=== PATIENT | female | born 1965 | race American Indian/Alaskan Native ===

== ENCOUNTER 2017-09-27 11:46 | Emergency (ER) | payer MEDICARE ==
[2017-09-27] MEDS ORDERED: ASPIRIN PO ONE (12:00)
[2017-09-27 12:32] LABS: Basophils % (Auto) 0.3 % (0.0-1.8); Eosinophils # (Auto) 0.1 K/mm3 (0.0-0.4); Eosinophils % (Auto) 1.7 % (0.0-4.3); Hematocrit 41.5 % (30.3-42.9); Hemoglobin 13.7 gm/dl (10.1-14.3); Lymphocytes # (Auto) 1.3 K/mm3 (1.2-5.4); Lymphocytes % (Auto) 32.7 % (13.4-35.0); Mean Corpuscular HGB Conc 33 % (30-34); Mean Corpuscular Hemoglobin 30 pg (28-32); Mean Corpuscular Volume 90 fl (79-97); Monocytes # (Auto) 0.2 K/mm3 (0.0-0.8); Monocytes % (Auto) 5.9 % (0.0-7.3); Platelet Count 246 K/mm3 (140-440); Red Blood Count 4.61 M/mm3 (3.65-5.03); Red Cell Distribution Width 15.1 % (13.2-15.2)
[2017-09-27 12:50] LABS: BUN/Creatinine Ratio 16; Blood Urea Nitrogen 11 mg/dL (7-17); Calcium 8.5 mg/dL (8.4-10.2); Hemolysis Index 8
--- NOTE | 2017-09-27 12:50 | XRay Report ---
Chest 2 views: X. History: Cough and chest pain. Findings: Normal cardiomediastinal silhouette. Trachea is midline. No consolidation, pneumothorax or pleural effusion. Impression: No acute cardiopulmonary findings.
--- NOTE | 2017-09-27 22:43 | Emergency Department Report ---
ED Chest Pain HPI - General Chief Complaint: Chest Pain Stated Complaint: CP/WEAKNESS/VOMIT Time Seen by Provider: 09/27/17 22:38 Source: patient Mode of arrival: Ambulatory Limitations: No Limitations - History of Present Illness Initial Comments: This is a 52-year-old female with a past medical history significant for previous GA with coronary artery stent placement and diabetes hypertension HIV hypercholesterolemia who comes to the hospital with a history of chest pain and cough worsening over the past day. She states that she has had a fever at home but did not check it, she did get her flu shot this season, she also admits to vomiting times one today. She states that when she tries to eat she feels like she is choking. She states that she has not been compliant with her HIV medications. She does however remark that her viral load was undetectable last year. She states that when she did have a heart attack, she felt like this in the past. Complaint: chest pain -: Gradual, days(s) (1) Onset: during rest Pain Location: substernal Pain Radiation: none Severity: moderate Quality: tightness, heaviness Consistency: intermittent Improves With: nothing Worsens With: nothing re: vomting Other Symptoms: cough, fever Treatments Prior to Arrival: none - Related Data Home Medications Medication Instructions Recorded Confirmed Last Taken Aspirin [Aspirin BABY CHEW TAB] 81 mg PO QDAY 09/04/13 04/03/14 04/02/14 Atenolol/Chlorthalidone [Tenoretic 1 tab PO QDAY 09/04/13 04/03/14 04/02/14 50-25 mg] Atorvastatin [Lipitor] 40 mg PO QHS 09/04/13 04/03/14 04/02/14 Clopidogrel Bisulfate [Plavix] 75 mg PO QDAY 09/04/13 04/03/14 04/02/14 metFORMIN [Glucophage] 500 mg PO BID 09/04/13 04/03/14 04/02/14 Previous Rx's Medication Instructions Recorded Last Taken Type Famotidine [Pepcid] 20 mg PO BID #10 tablet 04/03/14 Unknown Rx Naproxen [Naprosyn] 250 mg PO BID #10 tablet 04/03/14 Unknown Rx Naproxen [Naprosyn TAB] 500 mg PO BID #30 tablet 06/26/14 Unknown Rx ALBUTEROL Inhaler [ProAir HFA 2 puff IH QID PRN #1 inhalation 09/28/17 Unknown Rx Inhaler] Hycodan Syrup 5 ml PO BID PRN #150 ml 09/28/17 Unknown Rx Sulfamethoxazole/Trimethoprim 1 each PO BID 15 Days #30 tablet 09/28/17 Unknown Rx [Bactrim DS TAB] Allergies Allergy/AdvReac Type Severity Reaction Status Date / Time No Known Allergies Allergy Verified 06/26/14 12:33 Heart Score - HEART Score History: Slightly suspicious EKG: Non-specific Age: 45-65 Risk factors: > 3 risk factors or hx of atherosclerotic disease Troponin: < normal limit HEART Score: 4 ED Review of Systems ROS: Stated complaint: CP/WEAKNESS/VOMIT Other details as noted in HPI Comment: All other systems reviewed and negative Constitutional: see HPI, chills, fever, weakness Eyes: as per HPI ENT: as per HPI Respiratory: see HPI Cardiovascular: as per HPI Endocrine: see HPI Gastrointestinal: as per HPI Genitourinary: as per HPI Musculoskeletal: as per HPI Skin: as per HPI Neurological: as per HPI Psychiatric: as per HPI Hematological/Lymphatic: as per HPI ED Past Medical Hx - Past Medical History Hx Hypertension: Yes Hx Heart Attack/AMI: Yes (pt states had GA in march 2013 s/p stent placement by Dr Stephanie Pineda.) Hx Diabetes: Yes Hx HIV: Yes Additional medical history: high chol, HIV - Surgical History Hx Coronary Stent: Yes Additional Surgical History: hysterectomy. right knee surgery. left arm and wrist surgery - Social History Smoking Status: Current Every Day Smoker Substance Use Type: Alcohol - Medications Home Medications: Home Medications Medication Instructions Recorded Confirmed Last Taken Type Aspirin [Aspirin BABY CHEW TAB] 81 mg PO QDAY 09/04/13 04/03/14 04/02/14 History Atenolol/Chlorthalidone [Tenoretic 1 tab PO QDAY 09/04/13 04/03/14 04/02/14 History 50-25 mg] Atorvastatin [Lipitor] 40 mg PO QHS 09/04/13 04/03/14 04/02/14 History Clopidogrel Bisulfate [Plavix] 75 mg PO QDAY 09/04/13 04/03/14 04/02/14 History metFORMIN [Glucophage] 500 mg PO BID 09/04/13 04/03/14 04/02/14 History Famotidine [Pepcid] 20 mg PO BID #10 tablet 04/03/14 Unknown Rx Naproxen [Naprosyn] 250 mg PO BID #10 tablet 04/03/14 Unknown Rx Naproxen [Naprosyn TAB] 500 mg PO BID #30 tablet 06/26/14 Unknown Rx ALBUTEROL Inhaler [ProAir HFA 2 puff IH QID PRN #1 inhalation 09/28/17 Unknown Rx Inhaler] Hycodan Syrup 5 ml PO BID PRN #150 ml 09/28/17 Unknown Rx Sulfamethoxazole/Trimethoprim 1 each PO BID 15 Days #30 tablet 09/28/17 Unknown Rx [Bactrim DS TAB] ED Physical Exam - General Limitations: No Limitations General appearance: alert, in no apparent distress - Head Head exam: Present: atraumatic - Eye Eye exam: Present: normal appearance, PERRL, EOMI - ENT ENT exam: Present: normal exam - Neck Neck exam: Present: normal inspection - Respiratory Respiratory exam: Present: normal lung sounds bilaterally - Cardiovascular Cardiovascular Exam: Present: regular rate, normal rhythm - GI/Abdominal GI/Abdominal exam: Present: soft, normal bowel sounds - Extremities Exam Extremities exam: Present: normal inspection - Back Exam Back exam: Present: normal inspection - Neurological Exam Neurological exam: Present: alert, oriented X3, CN II-XII intact, normal gait - Psychiatric Psychiatric exam: Present: normal affect - Skin Skin exam: Present: warm, dry, intact ED Course Vital Signs 09/27/17 09/27/17 11:58 23:16 Temperature 98.4 F Pulse Rate 87 84 Respiratory 20 16 Rate Blood Pressure 157/75 Blood Pressure 144/77 [Left] O2 Sat by Pulse 98 100 Oximetry - Reevaluation(s) Reevaluation #1: 09/28/17 01:13 I reviewed the lab results with the patient. And her x-ray findings. 3 sets of cardiac enzymes are within normal limits. Her chest x-ray does not reveal any type of infiltrate or consolidation evident indicate pneumonia. Her flu swab was negative as well. At this time we'll go ahead and treat her for bronchitis. Because she is HIV-positive elect to go ahead and started on Bactrim DS 1 by mouth twice a day and will do that for at least 2 weeks. Also started on Hycodan cough syrup. I'll also give her an albuterol inhaler. She is to follow-up with her primary care doctor. I advised her to resume her HIV medications. 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 She expresses understanding. YONI score - Yoni Score Age > 65: (0) No Aspirin use within the Past 7 Days: (1) Yes 3 or more CAD Risk Factors: (1) Yes 2 or more Angina events in past 24 hrs: (0) No Known CAD with more than 50% Stenosis: (1) Yes Elevated Cardiac Markers: (0) No ST Deviation Greater than 0.5mm: (0) No YONI Score: 3 ED Medical Decision Making - Lab Data Result diagrams: 09/27/17 12:05 09/27/17 12:05 Critical care attestation.: If time is entered above; I have spent that time in minutes in the direct care of this critically ill patient, excluding procedure time. ED Disposition Clinical Impression: Acute bronchitis Qualifiers: Bronchitis organism: unspecified organism Qualified Code(s): J20.9 - Acute bronchitis, unspecified Disposition: DC-01 TO HOME OR SELFCARE Is pt being admited?: No Does the pt Need Aspirin: No Condition: Stable Instructions: Acute Bronchitis (ED) Additional Instructions: Rest, fluids, follow up to primary care doctor. Return as needed. Call 911 if you think you having a life-threatening emergency. Prescriptions: ALBUTEROL Inhaler [ProAir HFA Inhaler] 2 puff IH QID PRN #1 inhalation PRN Reason: Shortness Of Breath Hycodan Syrup 5 ml PO BID PRN #150 ml PRN Reason: Cough Sulfamethoxazole/Trimethoprim [Bactrim DS TAB] 1 each PO BID 15 Days #30 tablet Referrals: VIGNESH SORTO MD [Primary Care Provider] - 3-5 Days
[2017-09-27 23:19] VITALS: BP 144/77
== END 2017-09-28 01:45 | disposition home or self-care (01) ==
LOC: ED 11:46
DX: J20.9 Acute bronchitis, unspecified (principal); I10 Essential (primary) hypertension; I25.2 Old myocardial infarction; E11.9 Type 2 diabetes mellitus without complications; Z21 Asymptomatic human immunodeficiency virus [HIV] infection status; F17.200 Nicotine dependence, unspecified, uncomplicated; Z79.82 Long term (current) use of aspirin; E78.00 Pure hypercholesterolemia, unspecified
CPT/HCPCS: 36415; 71046; 80048; 84484; 85025; 87400; 93005; 93010

== ENCOUNTER 2018-10-17 11:33 | Emergency (ER) | payer MEDICARE ==
[2018-10-17 11:37] VITALS: BP 166/68
[2018-10-17] MEDS ORDERED: ULTRAM PO ONE (12:01)
[2018-10-17] MEDS ORDERED: TORADOL IM ONE (12:01)
--- NOTE | 2018-10-17 12:22 | Emergency Department Report ---
ED Abdominal Pain HPI - General Chief Complaint: Abdominal Pain Stated Complaint: ABD AND LEG PAIN Time Seen by Provider: 10/17/18 11:52 Source: patient Mode of arrival: Ambulatory Limitations: No Limitations - History of Present Illness Initial Comments: 53-year-old female with a past medical history of diabetes, CAD, HIV with CD4 greater than 200, hypertension, previous hysterectomy and presents to [facility] complaints of lower abdominal pain 2-3 days. Pain is along her previous scar and she feels a knot. Pain is intermittent, worse with palpation and initially felt like gas. No alleviating factors reported. Patient complains of a frothy/sudsy urine without dysuria or frequency. She also denies nausea, vomiting, diarrhea, or vaginal discharge. She does not express concerns for STD and has been essentially active one time in the last several months. Severity scale (0 -10): 8 - Related Data Home Medications Medication Instructions Recorded Confirmed Last Taken Aspirin [Aspirin BABY CHEW TAB] 81 mg PO QDAY 09/04/13 04/03/14 04/02/14 Atenolol/Chlorthalidone [Tenoretic 1 tab PO QDAY 09/04/13 04/03/14 04/02/14 50-25 mg] Atorvastatin [Lipitor] 40 mg PO QHS 09/04/13 04/03/14 04/02/14 Clopidogrel Bisulfate [Plavix] 75 mg PO QDAY 09/04/13 04/03/14 04/02/14 metFORMIN [Glucophage] 500 mg PO BID 09/04/13 04/03/14 04/02/14 Previous Rx's Medication Instructions Recorded Last Taken Type Famotidine [Pepcid] 20 mg PO BID #10 tablet 04/03/14 Unknown Rx Naproxen [Naprosyn] 250 mg PO BID #10 tablet 04/03/14 Unknown Rx Naproxen [Naprosyn TAB] 500 mg PO BID #30 tablet 06/26/14 Unknown Rx ALBUTEROL Inhaler (OR & NICU) 2 puff IH QID PRN #1 inhalation 09/28/17 Unknown Rx [ProAir HFA Inhaler] Hycodan Syrup 5 ml PO BID PRN #150 ml 09/28/17 Unknown Rx Sulfamethoxazole/Trimethoprim 1 each PO BID 15 Days #30 tablet 09/28/17 Unknown Rx [Bactrim DS TAB] Ibuprofen [Motrin] 800 mg PO Q8HR PRN #30 tablet 10/17/18 Unknown Rx traMADol [Ultram 50 MG tab] 50 mg PO Q6HR PRN #20 tablet 10/17/18 Unknown Rx Allergies Allergy/AdvReac Type Severity Reaction Status Date / Time No Known Allergies Allergy Verified 10/17/18 11:34 ED Review of Systems ROS: Stated complaint: ABD AND LEG PAIN Other details as noted in HPI Comment: All other systems reviewed and negative ED Past Medical Hx - Past Medical History Hx Hypertension: Yes Hx Heart Attack/AMI: Yes (pt states had [place] in march 2013 s/p stent placement by Dr Stephanie Pineda.) Hx Diabetes: Yes Hx HIV: Yes Additional medical history: high chol, HIV - Surgical History Hx Coronary Stent: Yes Additional Surgical History: hysterectomy. right knee surgery. left arm and wrist surgery - Social History Smoking Status: Current Every Day Smoker Substance Use Type: Alcohol - Medications Home Medications: Home Medications Medication Instructions Recorded Confirmed Last Taken Type Aspirin [Aspirin BABY CHEW TAB] 81 mg PO QDAY 09/04/13 04/03/14 04/02/14 History Atenolol/Chlorthalidone [Tenoretic 1 tab PO QDAY 09/04/13 04/03/14 04/02/14 History 50-25 mg] Atorvastatin [Lipitor] 40 mg PO QHS 09/04/13 04/03/14 04/02/14 History Clopidogrel Bisulfate [Plavix] 75 mg PO QDAY 09/04/13 04/03/14 04/02/14 History metFORMIN [Glucophage] 500 mg PO BID 09/04/13 04/03/14 04/02/14 History Famotidine [Pepcid] 20 mg PO BID #10 tablet 04/03/14 Unknown Rx Naproxen [Naprosyn] 250 mg PO BID #10 tablet 04/03/14 Unknown Rx Naproxen [Naprosyn TAB] 500 mg PO BID #30 tablet 06/26/14 Unknown Rx ALBUTEROL Inhaler (OR & NICU) 2 puff IH QID PRN #1 inhalation 09/28/17 Unknown Rx [ProAir HFA Inhaler] Hycodan Syrup 5 ml PO BID PRN #150 ml 09/28/17 Unknown Rx Sulfamethoxazole/Trimethoprim 1 each PO BID 15 Days #30 tablet 09/28/17 Unknown Rx [Bactrim DS TAB] Ibuprofen [Motrin] 800 mg PO Q8HR PRN #30 tablet 10/17/18 Unknown Rx traMADol [Ultram 50 MG tab] 50 mg PO Q6HR PRN #20 tablet 10/17/18 Unknown Rx ED Physical Exam - General Limitations: No Limitations - Other Other exam information: General: No limitations, patient is alert in no acute distress Head exam: Atraumatic, normocephalic Eyes exam: Normal appearance, pupils equal reactive to light, extraocular movements intact ENT: Moist mucous membrane, normal oropharynx Neck exam: Normal inspection, full range of motion, no meningismus nontender Respiratory exam: Clear to auscultation bilateral, no wheezes, rales, crackles Cardiovascular: Normal rate and rhythm, normal heart sounds Abdomen: Soft, nondistended, suprapubic tenderness and rlq tenderness, small nodule along mid csxn scar without flucutance or erythema, with normal bowel sounds, no rebound, or guarding Extremity: Full range of motion normal inspection no deformity Back: Normal Inspection, full range of motion, no tenderness Neurologic: Alert, oriented x3, cranial nerves intact, no motor or sensory deficit Psychiatric: normal affect, normal mood Skin: Warm, dry, intact ED Course Vital Signs 10/17/18 11:36 Temperature 98.1 F Pulse Rate 90 Respiratory 18 Rate Blood Pressure 166/68 O2 Sat by Pulse 100 Oximetry ED Medical Decision Making - Lab Data Result diagrams: 10/17/18 12:13 10/17/18 12:13 Lab Results 10/17/18 10/17/18 10/17/18 Range/Units 12:10 12:13 12:13 WBC 3.7 L (4.5-11.0) K/mm3 RBC 4.35 (3.65-5.03) M/mm3 Hgb 13.3 (10.1-14.3) gm/dl Hct 38.9 (30.3-42.9) % MCV 90 (79-97) fl MCH 31 (28-32) pg MCHC 34 (30-34) % RDW 15.7 H (13.2-15.2) % Plt Count 221 (140-440) K/mm3 Lymph % (Auto) Not Reportable [place] % (Auto) Not Reportable Eos % (Auto) Not Reportable Baso % (Auto) Not Reportable Lymph # Not Reportable [place] # Not Reportable Eos # Not Reportable Baso # Not Reportable Add Manual Diff Complete Total Counted 100 Seg Neuts % (Manual) 62.0 (40.0-70.0) % Band Neutrophils % 0 % Lymphocytes % (Manual) 32.0 (13.4-35.0) % Reactive Lymphs % (Man) 0 % Monocytes % (Manual) 4.0 (0.0-7.3) % Eosinophils % (Manual) 2.0 (0.0-4.3) % Basophils % (Manual) 0 (0.0-1.8) % Metamyelocytes % 0 % Myelocytes % 0 % Promyelocytes % 0 % Blast Cells % 0 % Nucleated RBC % Not Reportable Seg Neutrophils # Not Reportable Seg Neutrophils # Man 2.3 (1.8-7.7) K/mm3 Band Neutrophils # 0.0 K/mm3 Lymphocytes # (Manual) 1.2 (1.2-5.4) K/mm3 Abs React Lymphs (Man) 0.0 K/mm3 Monocytes # (Manual) 0.1 (0.0-0.8) K/mm3 Eosinophils # (Manual) 0.1 (0.0-0.4) K/mm3 Basophils # (Manual) 0.0 (0.0-0.1) K/mm3 Metamyelocytes # 0.0 K/mm3 Myelocytes # 0.0 K/mm3 Promyelocytes # 0.0 K/mm3 Blast Cells # 0.0 K/mm3 WBC Morphology Not Reportable Hypersegmented Neuts Not Reportable Hyposegmented Neuts Not Reportable Hypogranular Neuts Not Reportable Smudge Cells Not Reportable Toxic Granulation Not Reportable Toxic Vacuolation Not Reportable Dohle Bodies Not Reportable Pelger-Huet Anomaly Not Reportable Junior Rods Not Reportable Platelet Estimate Consistent w auto Clumped Platelets Not Reportable Plt Clumps, EDTA Not Reportable Large Platelets Not Reportable Giant Platelets Not Reportable Platelet Satelliting Not Reportable Plt Morphology Comment Not Reportable RBC Morphology Not Reportable Dimorphic RBCs Not Reportable Polychromasia Not Reportable Hypochromasia Not Reportable Poikilocytosis 1+ Anisocytosis 1+ Microcytosis Not Reportable Macrocytosis Not Reportable Spherocytes Not Reportable Pappenheimer Bodies Not Reportable Sickle Cells Not Reportable Target Cells Not Reportable Tear Drop Cells Not Reportable Ovalocytes Not Reportable Helmet Cells Not Reportable [place] Bodies Not Reportable [place] Rings Not Reportable [place] Cells Not Reportable Bite Cells Not Reportable Crenated Cell Not Reportable Elliptocytes Not Reportable Acanthocytes (Spur) Not Reportable Rouleaux Not Reportable Hemoglobin C Crystals Not Reportable Schistocytes Not Reportable Malaria parasites Not Reportable Franky Bodies Not Reportable Hem Pathologist Commnt No Sodium 135 L (137-145) mmol/L Potassium 4.2 (3.6-5.0) mmol/L Chloride 102.1 (98-107) mmol/L Carbon Dioxide 22 (22-30) mmol/L Anion Gap 15 mmol/L BUN 10 (7-17) mg/dL Creatinine 0.6 L (0.7-1.2) mg/dL Estimated GFR > 60 ml/min BUN/Creatinine Ratio 17 % Glucose 152 H (65-100) mg/dL Calcium 8.6 (8.4-10.2) mg/dL Total Bilirubin 0.50 (0.1-1.2) mg/dL AST 15 (5-40) units/L ALT 8 (7-56) units/L Alkaline Phosphatase 130 H (35-129) units/L Total Protein 8.0 (6.3-8.2) g/dL Albumin 3.3 L (3.9-5) g/dL Albumin/Globulin Ratio 0.7 % Urine Color Yellow (Yellow) Urine Turbidity Clear (Clear) Urine pH 5.0 (5.0-7.0) Ur Specific [place] 1.011 (1.003-1.030) Urine Protein >2000 mg dl (Negative) mg/dL Urine Glucose (UA) Neg (Negative) mg/dL Urine Ketones Neg (Negative) mg/dL Urine Blood Neg (Negative) Urine Nitrite Neg (Negative) Urine Bilirubin Neg (Negative) Urine Urobilinogen < 2.0 (<2.0) mg/dL Ur Leukocyte Esterase Neg (Negative) Urine WBC (Auto) 1.0 (0.0-6.0) /HPF Urine RBC (Auto) 7.0 (0.0-6.0) /HPF U Epithel Cells (Auto) < 1.0 (0-13.0) /HPF Urine Mucus Few /HPF - Radiology Data Radiology results: report reviewed ct abd/pelvis with IV contrast only: no acute process, hysterectomy - Medical Decision Making Labs, urine, CT unremarkable. Will be treated Symptomatic for pain and encouraged follow-up PMD. Patient be instructed to follow-up or regarding significant proteinuria. Normal renal function. copy of labs provided - Differential Diagnosis vaginitis, appendicitis, diverticulitis, UTI, constipation, Critical Care Time: No Critical care attestation.: If time is entered above; I have spent that time in minutes in the direct care of this critically ill patient, excluding procedure time. ED Disposition Clinical Impression: Lower abdominal pain, Proteinuria Disposition: TO HOME OR SELFCARE Is pt being admited?: No Does the pt Need Aspirin: No Condition: Stable Instructions: Abdominal Pain (ED) Additional Instructions: Take the medication as prescribed. Follow up with your doctor or the clinic/doctor provided. Return if symptoms worsen as indicated by your discharge instructions Prescriptions: Ibuprofen [Motrin] 800 mg PO Q8HR PRN #30 tablet PRN Reason: Pain, Moderate (4-6) traMADol [Ultram 50 MG tab] 50 mg PO Q6HR PRN #20 tablet PRN Reason: Pain Referrals: CALOS HELMWEOGUFKACOLD BROOK MD MARIA G [Primary Care Provider] - 3-5 Days CASEY ESPINAL MD [Staff Physician] - 3-5 Days Time of Disposition: 14:55
[2018-10-17 12:28] LABS: Hematocrit 38.9 % (30.3-42.9); Hemoglobin 13.3 gm/dl (10.1-14.3); Mean Corpuscular HGB Conc 34 % (30-34); Mean Corpuscular Volume 90 fl (79-97); Platelet Count 221 K/mm3 (140-440); Red Blood Count 4.35 M/mm3 (3.65-5.03); Red Cell Distribution Width 15.7 % (13.2-15.2)
[2018-10-17 12:30] LABS: Bilirubin,Urine NEG (Negative); Blood,Urine NEG (Negative); Color,Urine Yellow (Yellow); Mucus,Urine FEW /HPF; Urobilinogen,Urine < 2.0 mg/dL (<2.0)
[2018-10-17 12:33] LABS: Protein,Urine >2000 mg dL mg/dL (Negative)
[2018-10-17 12:47] LABS: Alanine Aminotransferase 8 units/L (7-56); Albumin 3.3 g/dL (3.9-5); BUN/Creatinine Ratio 17; Blood Urea Nitrogen 10 mg/dL (7-17); Calcium 8.6 mg/dL (8.4-10.2); Hemolysis Index 60
[2018-10-17 12:53] LABS: Basophils % (Manual) 0 % (0.0-1.8); Total Cells Counted 100
[2018-10-17 12:55] LABS: Anisocytosis 1+; Platelet Estimate Consistent w Auto; Poikilocytosis 1+
--- NOTE | 2018-10-17 14:30 | Cat Scan Report ---
CT ABDOMEN PELVIS WITH CONTRAST: HISTORY: Lower abdominal pain. COMPARISON: none. TECHNIQUE: Helical CT in 1.25mm intervals following IV contrast. Sagittal and coronal reconstructions. FINDINGS: Lung bases: Normal. Liver: Normal. Biliary system: Normal. Pancreas: Normal. Spleen: Normal. Kidneys/ureters/bladder: Normal. Adrenal glands: Normal. Aorta: Mild scattered calcifications. No aneurysm or dissection. Intestines: Within normal limits. Appendix: Normal. Pelvic viscera: Hysterectomy changes. Ascites: None. Adenopathy: None. Musculoskeletal: Mild lumbar spondylosis. IMPRESSION: No acute process is identified. Hysterectomy.
== END 2018-10-17 15:15 | disposition home or self-care (01) ==
LOC: ED 11:33
DX: R10.30 Lower abdominal pain, unspecified (principal); R80.9 Proteinuria, unspecified; I10 Essential (primary) hypertension; I25.2 Old myocardial infarction; E11.9 Type 2 diabetes mellitus without complications; F17.200 Nicotine dependence, unspecified, uncomplicated
CPT/HCPCS: 36415; 74177; 80053; 81001; 85007; 85025; 96372; 99284; J1885; Q9967

== ENCOUNTER 2018-12-31 11:55 | Emergency (ER) | payer MEDICARE ==
[2018-12-31 12:04] VITALS: BP 118/43
--- NOTE | 2018-12-31 12:04 | Emergency Department Report ---
Blank Doc - Documentation Documentation: This is a 53-year-old female that presents to the ED with c/o of right thigh a bscess. This initial assessment/diagnostic orders/clinical plan/treatment(s) is/are subject to change based on patient's health status, clinical progression and re- assessment by fellow clinical providers in the ED. Further treatment and workup at subsequent clinical providers discretion. Patient/guardians urged not to elope from the ED as their condition may be serious if not clinically assessed and managed. Initial orders include: 1- Patient sent to [facility] for further evaluation and treatment
--- NOTE | 2018-12-31 14:48 | Emergency Department Report ---
Abscess Boil HPI - HPI Chief Complaint: Extremity Problem,Nontraumatic Stated Complaint: R LEG ABSCESS/CHANGE IN COLOR Time Seen by Provider: 12/31/18 12:03 Duration: >1 Week Location: Other Severity: Mild History: Yes Previous History, No Fever, No Pain, No Purulent Drainage, No Numbness, No Foreign Body, No Insect Bite Home Medications: Home Medications Medication Instructions Recorded Confirmed Last Taken Aspirin [Aspirin BABY CHEW TAB] 81 mg PO QDAY 09/04/13 04/03/14 04/02/14 Atenolol/Chlorthalidone [Tenoretic 1 tab PO QDAY 09/04/13 04/03/14 04/02/14 50-25 mg] Atorvastatin [Lipitor] 40 mg PO QHS 09/04/13 04/03/14 04/02/14 Clopidogrel Bisulfate [Plavix] 75 mg PO QDAY 09/04/13 04/03/14 04/02/14 metFORMIN [Glucophage] 500 mg PO BID 09/04/13 04/03/14 04/02/14 Previous Rx's Medication Instructions Recorded Last Taken Type Famotidine [Pepcid] 20 mg PO BID #10 tablet 04/03/14 Unknown Rx Naproxen [Naprosyn] 250 mg PO BID #10 tablet 04/03/14 Unknown Rx Naproxen [Naprosyn TAB] 500 mg PO BID #30 tablet 06/26/14 Unknown Rx ALBUTEROL Inhaler (OR & NICU) 2 puff IH QID PRN #1 inhalation 09/28/17 Unknown Rx [ProAir HFA Inhaler] Hycodan Syrup 5 ml PO BID PRN #150 ml 09/28/17 Unknown Rx Sulfamethoxazole/Trimethoprim 1 each PO BID 15 Days #30 tablet 09/28/17 Unknown Rx [Bactrim DS TAB] Ibuprofen [Motrin] 800 mg PO Q8HR PRN #30 tablet 10/17/18 Unknown Rx traMADol [Ultram 50 MG tab] 50 mg PO Q6HR PRN #20 tablet 10/17/18 Unknown Rx Allergies/Adverse Reactions: Allergies Allergy/AdvReac Type Severity Reaction Status Date / Time No Known Allergies Allergy Verified 10/17/18 11:34 ED Review of Systems ROS: Stated complaint: R LEG ABSCESS/CHANGE IN COLOR Other details as noted in HPI Comment: All other systems reviewed and negative ED Past Medical Hx - Past Medical History Previous Medical History?: Yes Hx Hypertension: Yes Hx Heart Attack/AMI: Yes (pt states had [place] in march 2013 s/p stent placement by Dr Stephanie Pineda.) Hx Diabetes: Yes Hx HIV: Yes Additional medical history: high chol, HIV - Surgical History Past Surgical History?: Yes Hx Coronary Stent: Yes Additional Surgical History: hysterectomy. right knee surgery. left arm and wrist surgery - Family History Family history: no significant - Social History Smoking Status: Current Every Day Smoker Substance Use Type: None - Medications Home Medications: Home Medications Medication Instructions Recorded Confirmed Last Taken Type Aspirin [Aspirin BABY CHEW TAB] 81 mg PO QDAY 09/04/13 04/03/14 04/02/14 History Atenolol/Chlorthalidone [Tenoretic 1 tab PO QDAY 09/04/13 04/03/14 04/02/14 History 50-25 mg] Atorvastatin [Lipitor] 40 mg PO QHS 09/04/13 04/03/14 04/02/14 History Clopidogrel Bisulfate [Plavix] 75 mg PO QDAY 09/04/13 04/03/14 04/02/14 History metFORMIN [Glucophage] 500 mg PO BID 09/04/13 04/03/14 04/02/14 History Famotidine [Pepcid] 20 mg PO BID #10 tablet 04/03/14 Unknown Rx Naproxen [Naprosyn] 250 mg PO BID #10 tablet 04/03/14 Unknown Rx Naproxen [Naprosyn TAB] 500 mg PO BID #30 tablet 06/26/14 Unknown Rx ALBUTEROL Inhaler (OR & NICU) 2 puff IH QID PRN #1 inhalation 09/28/17 Unknown Rx [ProAir HFA Inhaler] Hycodan Syrup 5 ml PO BID PRN #150 ml 09/28/17 Unknown Rx Sulfamethoxazole/Trimethoprim 1 each PO BID 15 Days #30 tablet 09/28/17 Unknown Rx [Bactrim DS TAB] Ibuprofen [Motrin] 800 mg PO Q8HR PRN #30 tablet 10/17/18 Unknown Rx traMADol [Ultram 50 MG tab] 50 mg PO Q6HR PRN #20 tablet 10/17/18 Unknown Rx ED Abscess Boil Physical Exam - Exam General: Vital signs noted. No distress. Alert and acting appropriately. Exam: Yes Normal Neurologic Exam, Yes Normal Circulation, No Tenderness, No Fluctuance, No Surrounding Cellulites/Erythema, No Lymphangitis, No Crepitation, No Heart Murmur ED Course Vital Signs 12/31/18 12:02 Temperature 98.2 F Pulse Rate 68 Respiratory 16 Rate Blood Pressure 118/43 Critical care attestation.: If time is entered above; I have spent that time in minutes in the direct care of this critically ill patient, excluding procedure time. ED Medical Decision Making - Medical Decision Making RECHECK DUE TO BRUISING AROUND WOUND. WOUND HEALING. NO INFECTION NO NECROSIS PT WAS CONCERNED FOR VSS AFEBRILE DC HOME WITH PCP FOLLOW UP Vital Signs 12/31/18 12:02 Temperature 98.2 F Pulse Rate 68 Respiratory 16 Rate Blood Pressure 118/43 ED Disposition Clinical Impression: Bruising Disposition: DC-01 TO HOME OR SELFCARE Is pt being admited?: No Does the pt Need Aspirin: No Condition: Stable Additional Instructions: DIET TOLERATED MEDS ORDERED TODAY IN ER FOLLOW INSTRUCTIONS ON THE BOTTLE FOLLOW UP PCP WITHIN 48 HOURS TO ENSURE YOU ARE GETTING BETTER ACTIVITY TOLERATED MOTRIN OR TYLENOL FOR PAIN OR FEVER RETURN TO THE ER FOR WORSENING SYMPTOMS NOT RELIEVED BY YOUR MEDICATIONS. CONTINUE HOME MEDS Referrals: MARIA G HARRISON [Other] - 3-5 Days Time of Disposition: 14:48
== END 2018-12-31 15:16 | disposition home or self-care (01) ==
LOC: ED 11:55
DX: S80.11XA Contusion of right lower leg, initial encounter (principal); I10 Essential (primary) hypertension; I25.2 Old myocardial infarction; E11.9 Type 2 diabetes mellitus without complications; E78.00 Pure hypercholesterolemia, unspecified; F17.200 Nicotine dependence, unspecified, uncomplicated; Z95.0 Presence of cardiac pacemaker; Z90.710 Acquired absence of both cervix and uterus; Z79.82 Long term (current) use of aspirin; X58.XXXA Exposure to other specified factors, initial encounter; Y93.89 Activity, other specified; Y92.89 Other specified places as the place of occurrence of the external cause; Y99.8 Other external cause status
CPT/HCPCS: 99282

== ENCOUNTER 2019-02-12 10:51 | Inpatient (IN) | payer MEDICARE ==
--- NOTE | 2019-02-12 11:20 | Emergency Department Report ---
Blank Doc - Documentation Documentation: This is a 53-year-old female that presents with chest pain and SOB. Stated was in [place] ED and was going to be admitted for hypokalemia, COPD, pulmonary hypoertension. Patient stated left AMA. This initial assessment/diagnostic orders/clinical plan/treatment(s) is/are subject to change based on patient's health status, clinical progression and re- assessment by fellow clinical providers in the ED. Further treatment and workup at subsequent clinical providers discretion. Patient/guardians urged not to elope from the ED as their condition may be serious if not clinically assessed and managed. Initial orders include: 1- Patient sent to MAIN ED for further evaluation and treatment 2- labs 3- EKG 4- CXR
[2019-02-12 11:50] LABS: Basophils % (Auto) 0.5 % (0.0-1.8); Eosinophils % (Auto) 0.6 % (0.0-4.3); Hematocrit 40.6 % (30.3-42.9); Hemoglobin 13.8 gm/dl (10.1-14.3); Lymphocytes % (Auto) 14.9 % (13.4-35.0); Mean Corpuscular HGB Conc 34 % (30-34); Mean Corpuscular Volume 91 fl (79-97); Monocytes # (Auto) 0.4 K/mm3 (0.0-0.8); Monocytes % (Auto) 6.3 % (0.0-7.3); Platelet Count 341 K/mm3 (140-440); Red Blood Count 4.45 M/mm3 (3.65-5.03); Red Cell Distribution Width 15.6 % (13.2-15.2)
--- NOTE | 2019-02-12 11:50 | XRay Report ---
ROUTINE CHEST, TWO VIEWS: HISTORY: chest pain. The trachea, heart, mediastinal contour, lung cummins and bony thorax are unremarkable. IMPRESSION: Unremarkable chest x-ray. No change since 09/27/17.
[2019-02-12 12:01] LABS: INR 0.94 (0.87-1.13)
[2019-02-12 12:02] LABS: Partial Thromboplastin Time 23.2 Sec. (24.2-36.6)
[2019-02-12 12:10] LABS: BUN/Creatinine Ratio 26; Blood Urea Nitrogen 18 mg/dL (7-17); Calcium 9.2 mg/dL (8.4-10.2); Hemolysis Index 23
[2019-02-12] MEDS ORDERED: MORPHINE IV ONE ×2 (12:47→15:02)
[2019-02-12] MEDS ORDERED: DUONEB *Not for PRN Use IH ONE (12:47)
[2019-02-12] MEDS ORDERED: BABY ASPIRIN PO ONE (12:47)
--- NOTE | 2019-02-12 12:52 | Emergency Department Report ---
ED Chest Pain HPI - General Chief Complaint: Chest Pain Stated Complaint: CHEST PAIN Time Seen by Provider: 02/12/19 11:18 Source: patient Mode of arrival: Ambulatory Limitations: No Limitations - History of Present Illness Initial Comments: 53-year-old female presents to the emergency department with a complaint of some midsternal chest pain, shortness of breath and coughing fits. Patient was recently down in [facility] when she developed a fever, this cough and the shortness of breath. She went to an emergency department in [facility], 2 days ago, and had a full workup including a CT angiography of the chest that showed the patient having pulmonary hypertension. She was told that they wanted to admit her to the hospital for further evaluation the patient wanted to return to [place] and therefore signed out AMA. She has discharge paperwork that shows COPD, pulmonary hypertension, hypokalemia. The patient has a past medical history of coronary artery disease with previous [place] and cardiac stent in place, HIV with medication compliance, hypertension and diabetes. She says that her composite worker is Dr. Pineda. She is a tobacco smoker but denies any illicit drug use. - Related Data Home Medications Medication Instructions Recorded Confirmed Last Taken Aspirin [Aspirin BABY CHEW TAB] 81 mg PO QDAY 09/04/13 02/12/19 04/02/14 Atenolol/Chlorthalidone [Tenoretic 1 tab PO QDAY 09/04/13 02/12/19 04/02/14 50-25 mg] Clopidogrel Bisulfate [Plavix] 75 mg PO QDAY 09/04/13 02/12/19 04/02/14 metFORMIN [Glucophage] 500 mg PO BID 09/04/13 02/12/19 04/02/14 Abacavir/Dolutegravir/Lamivudi 1 each PO QDAY 02/12/19 02/12/19 Unknown [Triumeq 600-50-300 mg Tablet] Rosuvastatin Calcium [Crestor] 20 mg PO HS 02/12/19 02/12/19 Unknown Allergies Allergy/AdvReac Type Severity Reaction Status Date / Time No Known Allergies Allergy Verified 10/17/18 11:34 Heart Score - HEART Score History: Moderately suspicious EKG: Normal Age: 45-65 Risk factors: > 3 risk factors or hx of atherosclerotic disease Troponin: < normal limit HEART Score: 4 - Critical Actions Critical Actions: 4-6 pts:12-16.6% risk of adverse cardiac event. Should be admitted ED Review of Systems ROS: Stated complaint: CHEST PAIN Other details as noted in HPI Comment: All other systems reviewed and negative Constitutional: fever. denies: chills Eyes: denies: eye pain, vision change ENT: denies: ear pain, throat pain Respiratory: cough, shortness of breath, wheezing Cardiovascular: chest pain, edema Gastrointestinal: denies: abdominal pain, vomiting Genitourinary: denies: dysuria, discharge Musculoskeletal: denies: back pain, arthralgia Skin: denies: rash, lesions Neurological: denies: headache, weakness ED Past Medical Hx - Past Medical History Hx Hypertension: Yes Hx Heart Attack/AMI: Yes (pt states had [place] in march 2013 s/p stent placement by Dr Stephanie Pineda.) Hx Diabetes: Yes Hx HIV: Yes Additional medical history: high chol, HIV - Surgical History Hx Coronary Stent: Yes Additional Surgical History: hysterectomy. right knee surgery. left arm and wrist surgery - Social History Smoking Status: Current Every Day Smoker Substance Use Type: None - Medications Home Medications: Home Medications Medication Instructions Recorded Confirmed Last Taken Type Aspirin [Aspirin BABY CHEW TAB] 81 mg PO QDAY 09/04/13 02/12/19 04/02/14 History Atenolol/Chlorthalidone [Tenoretic 1 tab PO QDAY 09/04/13 02/12/19 04/02/14 History 50-25 mg] Clopidogrel Bisulfate [Plavix] 75 mg PO QDAY 09/04/13 02/12/19 04/02/14 History metFORMIN [Glucophage] 500 mg PO BID 09/04/13 02/12/19 04/02/14 History Abacavir/Dolutegravir/Lamivudi 1 each PO QDAY 02/12/19 02/12/19 Unknown History [Triumeq 600-50-300 mg Tablet] Rosuvastatin Calcium [Crestor] 20 mg PO HS 02/12/19 02/12/19 Unknown History ED Physical Exam - General Limitations: No Limitations - Other Other exam information: GENERAL: The patient is well-developed well-nourished. HENT: Normocephalic. Atraumatic. Patient has moist mucous membranes. EYES: Extraocular motions are intact. Pupils equal reactive to light bilaterally. NECK: Supple. Trachea is midline. CHEST/LUNGS: Clear to auscultation. A productive Senokot for her to examination. No tachypnea or accessory muscle use. There is no respiratory distress noted. HEART/CARDIOVASCULAR: Regular. There is no tachycardia. There is no murmur. ABDOMEN: Abdomen is soft, nontender. Patient has normal bowel sounds. There is no abdominal distention. SKIN: Skin is warm and dry. NEURO: The patient is awake, alert, and oriented. The patient is cooperative. The patient has no focal neurologic deficits. The patient has normal speech. MUSCULOSKELETAL: There is no tenderness or deformity. There is no evidence of acute injury. ED Course Vital Signs 02/12/19 02/12/19 02/12/19 11:18 13:34 13:39 Temperature 98.3 F Pulse Rate 97 H Pulse Rate [ 90 Anterior Bilateral Throughout] Respiratory 20 Rate Respiratory 18 Rate [Anterior Bilateral Throughout] Blood Pressure 156/72 O2 Sat by Pulse 97 100 Oximetry 02/12/19 13:48 Temperature Pulse Rate Pulse Rate [ 92 H Anterior Bilateral Throughout] Respiratory Rate Respiratory 18 Rate [Anterior Bilateral Throughout] Blood Pressure O2 Sat by Pulse Oximetry YONI score - Yoni Score Age > 65: (0) No Aspirin use within the Past 7 Days: (1) Yes 3 or more CAD Risk Factors: (1) Yes 2 or more Angina events in past 24 hrs: (0) No Known CAD with more than 50% Stenosis: (0) No Elevated Cardiac Markers: (0) No ST Deviation Greater than 0.5mm: (0) No YONI Score: 2 ED Medical Decision Making - Lab Data Result diagrams: 02/12/19 11:38 02/12/19 11:38 - EKG Data -: EKG Interpreted by [facility] EKG shows normal: sinus rhythm, axis, intervals, QRS complexes, ST-T waves Rate: normal - EKG Data When compared to previous EKG there are: no significant change Interpretation: normal EKG, unchanged when compared t (09/28/17) - Radiology Data Radiology results: image reviewed interpreted by me: Chest x-ray does not show any acute process. There are no pleural effusions, ob vious pneumonia and there is no pneumothorax. - Medical Decision Making This patient presents with some chest pain, shortness of breath, persistent cough and a recent diagnosis of pulmonary hypertension. She has a past medical history of coronary artery disease, diabetes and HIV. I was in to see the results of her recent CT angiography of the chest that showed a pulmonary nodule and pulmonary hypertension but no signs of any pulmonary embolism. EKG did not show any signs of ST elevation W[place]. First troponin negative. Patient was given a DuoNeb, and aspirin and a dose of morphine. Patient says it has been quite a while since she last had a stress test and with her continued chest pains and risk factors, the patient will be admitted to the hospital for further evaluation and treatment. She was accepted for admission by the hospitalist, Dr. Baig. - Differential Diagnosis WV, costochondritis, bronchitis, pneumonia, CHF Critical Care Time: No Critical care attestation.: If time is entered above; I have spent that time in minutes in the direct care of this critically ill patient, excluding procedure time. ED Disposition Clinical Impression: Acute chest pain, Angina at rest HIV (human immunodeficiency virus infection) Qualifiers: HIV symptom status: asymptomatic Qualified Code(s): Z21 - Asymptomatic human immunodeficiency virus [HIV] infection status Nicotine dependence Qualifiers: Nicotine product type: unspecified Substance use status: unspecified nicotine-induced disorder Qualified Code(s): F17.209 - Nicotine dependence, unspecified, with unspecified nicotine-induced disorders Disposition: DC-09 OP ADMIT IP TO THIS HOSP Is pt being admited?: Yes Condition: Fair Time of Disposition: 16:34
[2019-02-12] MEDS ORDERED: TYLENOL PO PRN (13:04)
[2019-02-12] MEDS ORDERED: PROVENTIL IH PRN (13:04)
[2019-02-12] MEDS ORDERED: SODIUM CHLORIDE FLUSH SYRINGE 10 ML IV PRN ×2 (13:04→13:07)
[2019-02-12] MEDS ORDERED: ZOFRAN IV PRN (13:04)
[2019-02-12] MEDS ORDERED: MORPHINE IV PRN (13:04)
[2019-02-12] MEDS ORDERED: ULTRAM PO PRN (13:06)
[2019-02-12 13:52] LABS: Chol/HDL Ratio 8.36 %
--- NOTE | 2019-02-12 14:52 | History and Physical Report ---
History of Present Illness Date of admission: 02/12/19 13:04 Chief complaint: My chest hurts History of present illness: 53 YO Female with HTN, DM, MA, CAD S/P Stent placement, HIV, Nicotine D ependence, HLD presents to ED for evaluation. Pt states that she has experienced pain in her chest over the past 3 weeks, with worsening symptoms over the past 2 days. Pt states that he pain got worse this morning. Pt states that her pain is 8-10/10, substernal, nonradiating, worsened with exertion, relieved with rest. Pt acknowledges shortness of breath, decreased exercise tolerance. Pt denies fe shilo, chills, palpitations, NVD, Trauma, BRBPR, Productive cough, skin rash, recent ill contacts, or recent ill contacts. Pt seen and evaluated in ED and found to have symptoms consistent with angina as well as Diastolic CHF. Cardiology consulted in ED. Pt admitted to telemetry. No prior admission for review. All listed medication reconciled at time of admission. Past History Past Medical History: acute MA, CAD, diabetes, HIV/AIDS, hypertension Past Surgical History: hysterectomy, total knee replacement, Other (Left Srist surgery) Social history: , smoking Family history: diabetes, hypertension Medications and Allergies Allergies Allergy/AdvReac Type Severity Reaction Status Date / Time No Known Allergies Allergy Verified 10/17/18 11:34 Home Medications Medication Instructions Recorded Confirmed Last Taken Type Aspirin [Aspirin BABY CHEW TAB] 81 mg PO QDAY 09/04/13 02/12/19 04/02/14 History Atenolol/Chlorthalidone [Tenoretic 1 tab PO QDAY 09/04/13 02/12/19 04/02/14 History 50-25 mg] Clopidogrel Bisulfate [Plavix] 75 mg PO QDAY 09/04/13 02/12/19 04/02/14 History metFORMIN [Glucophage] 500 mg PO BID 09/04/13 02/12/19 04/02/14 History Abacavir/Dolutegravir/Lamivudi 1 each PO QDAY 02/12/19 02/12/19 Unknown History [Triumeq 600-50-300 mg Tablet] Rosuvastatin Calcium [Crestor] 20 mg PO HS 02/12/19 02/12/19 Unknown History Active Meds: Active Medications Acetaminophen (Tylenol) 650 mg PO Q4H PRN PRN Reason: Pain MILD(1-3)/Fever >100.5/MARSH Albuterol (Proventil) 2.5 mg IH Q4HRT PRN PRN Reason: Shortness Of Breath Aspirin (Baby Aspirin) 81 mg PO QDAY [facility] Atenolol (Tenormin) 50 mg PO QDAY [facility] Atorvastatin Calcium (Lipitor) 40 mg PO QHS [facility] Chlorthalidone (Thalitone) 25 mg PO QDAY [facility] Clopidogrel Bisulfate (Plavix) 75 mg PO QDAY [facility] Famotidine (Pepcid) 20 mg PO BID [facility] Morphine Sulfate (Morphine) 2 mg IV Q4H PRN PRN Reason: Pain, Moderate (4-6) Ondansetron HCl (Zofran) 4 mg IV Q8H PRN PRN Reason: Nausea And Vomiting Sodium Chloride (Sodium Chloride Flush Syringe 10 Ml) 10 ml IV BID DAINA Sodium Chloride (Sodium Chloride Flush Syringe 10 Ml) 10 ml IV PRN PRN PRN Reason: LINE FLUSH Sodium Chloride (Sodium Chloride Flush Syringe 10 Ml) 10 ml IV PRN PRN PRN Reason: LINE FLUSH Tramadol HCl (Ultram) 50 mg PO Q6HR PRN PRN Reason: Pain Review of Systems Constitutional: no weight loss, no weight gain, no fever, no chills Ears, nose, mouth and throat: no ear pain, no ear discharge, no tinnitis, no decreased hearing, no nose pain Breasts: no change in shape, no swelling, no mass Cardiovascular: chest pain, shortness of breath, decreased exercise tolerance, no orthopnea, no rapid/irregular heart beat, no lightheadedness, no paroxysmal nocturnal dyspnea Respiratory: no cough, no cough with sputum, no excessive sputum, no hemoptysis Gastrointestinal: no abdominal pain, no nausea, no vomiting, no diarrhea Genitourinary Female: no pelvic pain, no flank pain, no menorrhagia, no dysuria, no urinary frequency Rectal: no pain, no incontinence, no bleeding Musculoskeletal: no neck stiffness, no neck pain, no shooting arm pain, no arm numbness/tingling, no low back pain, no shooting leg pain, no leg numbness/tingling Integumentary: no rash, no pruritis, no redness, no sores, no wounds, no jaundice Neurological: no head injury, no transient paralysis, no paralysis, no weakness, no parathesias, no numbness, no tingling Psychiatric: no anxiety, no memory loss, no change in sleep habits, no sleep disturbances, no insomnia, no hypersomnia, no change in appetite, no change in l ibido Endocrine: no cold intolerance, no polyphagia, no excessive thirst, no polydipsia, no polyuria, no nocturia, no excessive sweating Hematologic/Lymphatic: no easy bruising, no easy bleeding, no lymphadenopathy, no lymphedema Allergic/Immunologic: no urticaria, no allergic rhinitis, no wheezing, no persistent infections Exam - Constitutional Vitals: Temp Pulse Resp BP Pulse Ox 98.3 F 92 H 18 156/72 100 02/12/19 11:18 02/12/19 13:48 02/12/19 13:48 02/12/19 11:18 02/12/19 13:39 General appearance: Present: mild distress, obese - EENT Eyes: Present: PERRL ENT: hearing intact, clear oral mucosa - Neck Neck: Present: supple, normal ROM - Respiratory Respiratory effort: normal Respiratory: bilateral: CTA - Cardiovascular Heart Sounds: Present: S1 & S2. Absent: rub, click - Extremities Extremities: pulses symmetrical, No edema Peripheral Pulses: within normal limits - Abdominal General gastrointestinal: Present: soft, non-tender, non-distended, normal bowel sounds Female genitourinary: Present: normal - Integumentary Integumentary: Present: clear, warm, dry - Musculoskeletal Musculoskeletal: gait normal, strength equal bilaterally - Psychiatric Psychiatric: appropriate mood/affect, intact judgment & insight - Neurologic Neurologic: CNII-XII intact, moves all extremities Results - Labs CBC & Chem 7: 02/12/19 11:38 02/12/19 11:38 Labs: Abnormal lab results 02/12/19 02/12/19 02/12/19 Range/Units 11:38 11:38 11:38 RDW 15.6 H (13.2-15.2) % Lymph # 1.0 L (1.2-5.4) K/mm3 Seg Neutrophils % 77.7 H (40.0-70.0) % APTT 23.2 L (24.2-36.6) Sec. Sodium 136 L (137-145) mmol/L Chloride 97.3 L (98-107) mmol/L BUN 18 H (7-17) mg/dL Glucose 135 H (65-100) mg/dL Triglycerides (2-149) mg/dL Cholesterol (50-199) mg/dL LDL Cholesterol Direct (50-130) mg/dL HDL Cholesterol (40-59) mg/dL 02/12/19 Range/Units 11:38 RDW (13.2-15.2) % Lymph # (1.2-5.4) K/mm3 Seg Neutrophils % (40.0-70.0) % APTT (24.2-36.6) Sec. Sodium (137-145) mmol/L Chloride (98-107) mmol/L BUN (7-17) mg/dL Glucose (65-100) mg/dL Triglycerides 258 H (2-149) mg/dL Cholesterol 301 H (50-199) mg/dL LDL Cholesterol Direct 225 H (50-130) mg/dL HDL Cholesterol 36 L (40-59) mg/dL Assessment and Plan - Patient Problems (1) Diastolic CHF Current Visit: Yes Status: Acute Qualifiers: Heart failure chronicity: acute Qualified Code(s): I50.31 - Acute diastolic (congestive) heart failure Plan to address problem: Admit to telemetry: D dimer, BNP, strict I/o, daily weight, monitor uop q shift, Echo, cardiology consulted in ED, thyroid panel, magnesium level, chest x ray. (2) Angina at rest Current Visit: Yes Status: Acute Plan to address problem: Admit to telemetry, serial cardiac enzymes, ekg, telemetry, morphine, supplemental oxygen, nitro, aspirin. (3) Obesity Current Visit: Yes Status: Acute Qualifiers: Body mass index: BMI 39.0-39.9 Plan to address problem: Balanced diet, increased physical activity at discharge, (4) HIV (human immunodeficiency virus infection) Current Visit: Yes Status: Acute Qualifiers: HIV symptom status: asymptomatic Qualified Code(s): Z21 - Asymptomatic human immunodeficiency virus [HIV] infection status Plan to address problem: Continue current therapy, Outpatient ID F/u (5) HTN (hypertension) Current Visit: Yes Status: Acute Qualifiers: Hypertension type: essential hypertension Qualified Code(s): I10 - Essential (primary) hypertension Plan to address problem: Monitor BP q shift, (6) Nicotine dependence Current Visit: Yes Status: Acute Plan to address problem: Supportive care, smoking cessation counseling. (7) DVT prophylaxis Current Visit: Yes Status: Acute Plan to address problem: SCD to BLE while in bed,
[2019-02-12 16:20] LABS: Free T4 (Free Thyroxine) 1.12 ng/dL (0.76-1.46)
[2019-02-12] MEDS: PEPCID PO SCH (21:16)
[2019-02-12] MEDS: SODIUM CHLORIDE FLUSH SYRINGE 10 ML IV SCH (21:19)
[2019-02-12] MEDS ORDERED: LOVENOX SUB-Q SCH (22:00)
[2019-02-12] MEDS ORDERED: SENOKOT S PO PRN (23:38)
[2019-02-13 06:05] LABS: Hematocrit 36.4 % (30.3-42.9); Hemoglobin 12.3 gm/dl (10.1-14.3); Mean Corpuscular HGB Conc 34 % (30-34); Mean Corpuscular Volume 92 fl (79-97); Platelet Count 293 K/mm3 (140-440); Red Blood Count 3.96 M/mm3 (3.65-5.03); Red Cell Distribution Width 15.7 % (13.2-15.2)
[2019-02-13 06:27] LABS: BUN/Creatinine Ratio 21; Blood Urea Nitrogen 15 mg/dL (7-17); Hemolysis Index 6
[2019-02-13 08:19] LABS: Monocytes % (Manual) 0 % (0.0-7.3); Total Cells Counted 100
[2019-02-13 08:20] LABS: Basophils % (Manual) 0 % (0.0-1.8); Platelet Estimate Consistent w Auto; RBC Morphology Normal
[2019-02-13] MEDS ORDERED: LEXISCAN IV ONE ×2 (09:12→09:13)
[2019-02-13] MEDS ORDERED: HABITROL TD SCH (10:00)
[2019-02-13] MEDS ORDERED: TENORMIN PO SCH (10:00)
[2019-02-13] MEDS ORDERED: CHLORTHALIDONE PO SCH (10:00)
[2019-02-13] MEDS ORDERED: BABY ASPIRIN PO SCH (10:00)
[2019-02-13] MEDS ORDERED: PLAVIX PO SCH (10:00)
[2019-02-13] MEDS ORDERED: THALITONE PO SCH (10:00)
[2019-02-13] MEDS ORDERED: ATENOLOL PO SCH (10:00)
[2019-02-13 10:14] VITALS: BP 112/57
--- NOTE | 2019-02-13 10:39 | Event Note ---
Date: 02/13/19 Detailed cardiology consultation dictated. S/p lexiscan MPI stress test this AM which was negative for significant ischemia, EF 55%. Currently stable cardiac status. Pt may discharge from cardiology standpoint. Recommend pt follow up in our office with Dr. Epstein within 1-2 weeks of hospital discharge. Myriam SUTTON NP / DR. EPSTEIN
[2019-02-13] MEDS ORDERED: MIRALAX 3350 PO SCH (14:00)
[2019-02-13] MEDS ORDERED: PROTONIX PO SCH (14:00)
[2019-02-13] MEDS ORDERED: COLACE PO SCH (14:00)
[2019-02-13] MEDS ORDERED: ZITHROMAX PO SCH (14:00)
--- NOTE | 2019-02-13 14:05 | Discharge Summary ---
Providers - Providers Date of Admission: 02/12/19 13:04 Date of discharge: 02/13/19 Attending physician: ZAY HAHN 02/12/19 Consult to Cardiac Rehabilitation [CONS] Routine Reason For Exam: Phase I 02/12/19 13:07 Consult to Cardiology [CONS] Routine Consulting Provider: LAURA SEBASTIAN Reason For Exam: angina,chf Primary care physician: VIGNESH SORTO Hospitalization Condition: Fair Hospital course: 53 YO Female with HTN, DM, CA, CAD S/P Stent placement, HIV, Nicotine Dependence, HLD presents to ED for evaluation of chest pain that she has experienced over past 3 weeks with coarsening over past 2 days.. Her chest x-ray was unremarkable. Cardiac enzymes and EKG was normal. She was further evaluated by stress test, her MPI stress test was normal showing preserved EF. Patient wasn't discharged home with PPI for possible GERD and she was instructed to follow up with her primary care physician in a week.. Radiological data: Chest x-ray MPI stress test Discharge diagnosis: Chest pain likely due to GERD URI, placed on Zithromax for 5 days Morbid obesity, due to excess calorie, dietary and exercise recommendation given HIV, will continue home meds Hypertension, stable Tobacco Use, counseled for cessation Diabetes mellitus type 2 on metformin Physical exam: GENERAL: well-developed and morbidly obese female lying on bed appeared to be in no discomfort. HEENT: Normocephalic. Atraumatic. No conjunctival congestion or icterus. Patient has moist mucous membranes. NECK: Supple. Trachea midline. CHEST/LUNGS: Clear to auscultated bilaterally, breathing nonlabored. No wheezes crackles or rhonchi. HEART/CARDIOVASCULAR: Regular in rate and rhythm. S1 and S2 positive. ABDOMEN: Abdomen is soft, nontender. Patient has normal bowel sounds. SKIN: There is no rash. Warm and dry. NEURO: No focal motor deficit. Follows command. MUSCULOSKELETAL: No joint effusion or tenderness. EXTRIMITY: No edema, no cyanosis or clubbing. PSYCH: Cooperative. Disposition: DC-01 TO HOME OR SELFCARE Time spent for discharge: 34 minutes Core Measure Documentation - Palliative Care Palliative Care/ Comfort Measures: Not Applicable - Core Measures Any of the following diagnoses?: none Exam - Constitutional Vitals: Temp Pulse Resp BP Pulse Ox 98.7 F 87 18 112/57 97 02/13/19 04:09 02/13/19 04:09 02/13/19 07:50 02/13/19 09:43 02/13/19 07:50 Plan Activity: advance as tolerated Weight Bearing Status: Weight Bear as Tolerated Diet: low fat, low salt Follow up with: VIGNESH SORTO MD [Primary Care Provider] - 3-5 Days FAINA EDWARD MD [Staff Physician] - 7 Days CHEIKH VIRGEN MD [Staff Physician] - 7 Days Prescriptions: Pantoprazole [Protonix] 40 mg PO QDAY #30 tablet Azithromycin [Zithromax TAB] 500 mg PO QDAY #4 tablet
[2019-02-13] MEDS: PEPCID PO SCH (15:13)
[2019-02-13] MEDS: SODIUM CHLORIDE FLUSH SYRINGE 10 ML IV SCH (15:13)
[2019-02-13] MEDS ORDERED: MAGNESIUM SULFATE 2GM/50ML 2 GM/50 ML BAG IV ONE (16:00)
[2019-02-13] MEDS ORDERED: NON-FORMULARY (Rosuvastatin Calcium [Crestor] 20 MG) PO SCH (22:00)
--- NOTE | 2019-02-14 03:59 | Consultation ---
Seen in consultation on 02/13/2019. Consultation is requested by Dr. Kiran Baig. HISTORY OF PRESENT ILLNESS: This is a 53-year-old -[place] female who presented to the Emergency Room with complaints of anterior chest pain, cough, congestion and shortness of breath for further evaluation and management. The patient is known to have coronary artery disease and gives history of myocardial infarction followed by coronary angioplasty with stent [place] [address] Pineda. Hence, cardiac evaluation. The patient states that she was in [place] and was admitted to the hospital there with complaints of fever, cough, congestion, etc. The patient at that time underwent CT angiogram of the chest and was told to have a pulmonary nodule, pulmonary hypertension. No pulmonary embolism. The patient was then advised admission for further management, but she signed out against medical advice and came to the Emergency Room here. The patient states that she has pain across the anterior chest and has been more or less constant. It gets worse at times. Not particularly related to exertion for the past. No definite radiation to the neck, throat, or arms. The patient was also complaining of congestion and cough and shortness of breath. She denied any fever. The patient states that she feels weak and tired. She has difficulty swallowing. It feels like the food is getting stuck in the chest. The patient is extremely anxious and worried. The patient has not been to see Dr. Pineda for over a year. She does see a primary physician, though. She denied any known pulmonary problems in the past. She is not on any medications. She has not seen a polysomnographic technician according to her. The patient states that she has been taking her medications regularly. She continues to smoke against advised, though. The patient denied any history of orthopnea or PND. No edema of feet. Occasional palpitations noted. No claudications. Dizziness noted, but no syncope. PAST MEDICAL HISTORY: Includes; 1. Hypertension. 2. Diabetes mellitus. 3. Hyperlipidemia. 4. Coronary artery disease with history of myocardial infarction and coronary angioplasty with stent placement in [address] Pineda. 5. History of human immunodeficiency virus. Recent hospitalization at [place] where she was told to have pulmonary hypertension, COPD and pulmonary nodule. FAMILY HISTORY: Unremarkable except for hypertension, diabetes. SOCIAL HISTORY: The patient is a smoker. Nonalcoholic. ALLERGIES: None known to medications. MEDICATIONS: The patient is currently on aspirin 81 mg daily, clopidogrel 75 mg once daily, metformin 500 mg b.i.d., rosuvastatin 20 mg at bedtime, Tenoretic 50/25 mg once daily. REVIEW OF SYSTEMS: CARDIOVASCULAR: As described above. RESPIRATORY: The patient now gives history of coughing and wheezing, etc. GASTROINTESTINAL AND GENITOURINARY: Unremarkable. NEUROLOGICAL: Unremarkable. PHYSICAL EXAMINATION: GENERAL: This is a 53-year-old female, well-developed, well-nourished, in mild distress with cough and congestion and also chest pain. The patient is conscious, alert, oriented. Afebrile. SKIN: Warm and dry. HEENT: Pupils are reactive. NECK: Supple. Both carotids palpable. No definite bruit. No JVD. CHEST: Fairly clear. Few rales noted at the base on deep breathing. No rhonchi. HEART: S1, S2 heard well. She does have grade 1-2/6 systolic murmur at the aortic area and left sternal border. No diastolic murmur or gallop. ABDOMEN: Soft, nontender. EXTREMITIES: No edema, no calf tenderness. Good peripheral pulses. NEUROLOGIC: Evaluation was grossly within normal limits. RECTAL AND PELVIC: Examination was not done at this time. LABORATORY DATA: The enzymes were negative. EKG done showed no acute changes. Chest x-ray was normal. ASSESSMENT AND PLAN: This is a 53-year-old female with known coronary artery disease, hypertension, hyperlipidemia, diabetes mellitus and HIV who is now presenting with complaints of chest pain, chest congestion, cough and shortness of breath for further evaluation and management. It was difficult to get a good history of chest pain from the patient. Chest pain is constant and has been going on for more than 24 hours, not related to exertion, rather atypical for cardiac etiology. However, with her history of coronary artery disease and multiple risk factors for coronary artery disease including smoking, agree with admission to the hospital and obtaining serial EKGs and enzymes and if negative, proceeding with Lexiscan thallium test to rule out any underlying coronary artery disease causing the chest pain. Pros and cons were explained to the patient. The patient expressed understanding and agreed to it. Meanwhile, we will continue the present medications. Rest of the plan as per orders. Thank you very much for this consultation. We will follow the patient along with you. JOB# [id number] YUE/RYLIE
[2019-02-14] MEDS ORDERED: NON-FORMULARY (Abacavir/Dolutegravir/Lamivudi [Triumeq 600-50-300 Mg Tablet] 1 EACH) PO SCH (10:00)
--- NOTE | 2019-02-23 11:54 | Treadmill Report ---
NUCLEAR PERFUSION STUDY REASON FOR STUDY: Chest pain. READING PHYSICIAN: Ranjan Lynne MD IMAGING PROTOCOL: The patient received 10 mCi of Technetium 99m Tetrofosmin for resting image and 28 mCi of Technetium 99m Tetrofosmin for stress imaging. The imaging for the whole procedure was completed 30-90 minutes following the initial injection of Technetium 99m Tetrofosmin. The SPECT imaging in the 180 degree arc was performed in the right anterior oblique projection. Computerized reconstruction of the images was performed for analysis. IMAGING RESULTS: Normal cavity size from stress to rest. Normal distribution of radionuclide in the anterior, inferior, septal, and apical regions. Gated SPECT, EF 55% with no wall motion abnormality. The patient infused Lexiscan with no EKG changes. SUMMARY: 1. Negative Lexiscan EKG. 2. Normal rest and stress myocardial perfusion scan. No significant stress ischemia. No wall motion abnormality. Gated SPECT, EF 55%. JOB# [id number] DAVY/RYLIE
== END 2019-02-13 16:46 | disposition home or self-care (01) | DRG 391 ==
LOC: ED 10:51 → 4A 13:04
PROVIDERS: ADMIT Internal Medicine; ATTEND Internal Medicine
DX: K21.9 Gastro-esophageal reflux disease without esophagitis (principal); I50.31 Acute diastolic (congestive) heart failure; B20 Human immunodeficiency virus [HIV] disease; E78.00 Pure hypercholesterolemia, unspecified; Z96.651 Presence of right artificial knee joint; J06.9 Acute upper respiratory infection, unspecified; E66.01 Morbid (severe) obesity due to excess calories; F17.209 Nicotine dependence, unspecified, with unspecified nicotine-induced disorders; I20.8 Other forms of angina pectoris; I11.0 Hypertensive heart disease with heart failure; Z68.39 Body mass index [BMI] 39.0-39.9, adult; I25.2 Old myocardial infarction; Z83.3 Family history of diabetes mellitus; Z82.49 Family history of ischemic heart disease and other diseases of the circulatory system; Z90.710 Acquired absence of both cervix and uterus; Z95.5 Presence of coronary angioplasty implant and graft; Z79.82 Long term (current) use of aspirin; Z79.899 Other long term (current) drug therapy; Z79.84 Long term (current) use of oral hypoglycemic drugs; Z71.6 Tobacco abuse counseling; Z71.3 Dietary counseling and surveillance
CPT/HCPCS: 36415; 71046; 78452; 80048; 80061; 82962; 83735; 83880; 84439; 84443; 84484; 85007; 85025; 85379; 85610; 85730; 93005; 93010; 93017; 94640; 96374; 96376; G0378; A9270-GY; A9502; J1650; J2270; J2785; J3475

== ENCOUNTER 2019-03-04 08:42 | Emergency (ER) | payer MEDICARE ==
[2019-03-04] MEDS ORDERED: PEPCID IV ONE (09:50)
[2019-03-04] MEDS ORDERED: NACL 0.9% 1000 ML 1,000 ML IV ONE (09:50)
[2019-03-04] MEDS ORDERED: TORADOL IV ONE (09:50)
[2019-03-04] MEDS ORDERED: ZOFRAN ODT PO PRN (09:50)
[2019-03-04] MEDS ORDERED: CARAFATE PO ONE (09:51)
[2019-03-04] MEDS ORDERED: PROVENTIL IH ONE (09:51)
[2019-03-04] MEDS ORDERED: ANTIVERT PO ONE (09:51)
[2019-03-04] MEDS ORDERED: NACL 0.9% 500 ML 500 ML IV ONE (09:51)
[2019-03-04] MEDS ORDERED: ZOFRAN IV ONE (10:00)
[2019-03-04 10:19] LABS: Hematocrit 37.4 % (30.3-42.9); Hemoglobin 12.4 gm/dl (10.1-14.3); Mean Corpuscular HGB Conc 33 % (30-34); Mean Corpuscular Volume 92 fl (79-97); Platelet Count 287 K/mm3 (140-440); Red Blood Count 4.09 M/mm3 (3.65-5.03); Red Cell Distribution Width 15.4 % (13.2-15.2)
[2019-03-04 10:30] LABS: INR 1.05 (0.87-1.13)
[2019-03-04 10:41] LABS: Albumin 3.2 g/dL (3.9-5); BUN/Creatinine Ratio 9; Blood Urea Nitrogen 6 mg/dL (7-17); Calcium 9.1 mg/dL (8.4-10.2); Hemolysis Index 7
[2019-03-04 10:42] LABS: Alanine Aminotransferase < 5 units/L (7-56)
--- NOTE | 2019-03-04 10:51 | XRay Report ---
CHEST 2 VIEWS INDICATION: Acute chest pain, cough. COMPARISON: FINDINGS: Support devices: None. Heart: Within normal limits. Lungs/pleura: No acute air space or interstitial disease. No pneumothorax. Additional findings: None. IMPRESSION: 1. No acute findings. Signer Name: Maikel Pratt Jr, MD Signed: 03/04/2019 9:47 AM Workstation Name: [id number]
--- NOTE | 2019-03-04 11:04 | Cat Scan Report ---
CT head without contrast INDICATION : Acute dizziness and nausea and vomiting. TECHNIQUE: Axial imaging performed from the skull apex through the skull base without the use of con trast. All CT scans at this location are performed using CT dose reduction for ALARA by means of aut omated exposure control. COMPARISON: None FINDINGS: Parenchyma: No acute intracranial hemorrhage or parenchymal abnormality. Ventricles: Ventricles are normal in size and appear symmetric. Soft tissues: Soft tissues including the orbits appear normal. Bones: No acute osseous abnormality. Sinuses: Sinuses and mastoid air cells are clear. IMPRESSION: No acute abnormality. Signer Name: Maikel Pratt Jr, MD Signed: 03/04/2019 9:59 AM Workstation Name: [id number]
[2019-03-04] MEDS ORDERED: MAGNESIUM SULFATE 2GM/50ML 2 GM/50 ML BAG IV ONE (11:08)
--- NOTE | 2019-03-04 11:15 | Emergency Department Report ---
ED General Adult HPI - General Chief complaint: Chest Pain Stated complaint: VOMITING/DIZZINESS/CHEST PAIN/HEADACHE Time Seen by Provider: 03/04/19 09:32 Source: patient, RN notes reviewed, old records reviewed Mode of arrival: Ambulatory Limitations: No Limitations - History of Present Illness Initial comments: Cardiology: Dr. Valverde PMD Dr Hurley Past medical history: Hypertension, diabetes, heart disease, stent, HIV, nicotine dependence, high cholesterol Patient admitted to this hospital last month for chest pain. Had a negative nuclear stress test. Seen by cardiology, who recommended outpatient follow-up. The patient has not followed up so far. Patient discharged with Zithromax and Protonix, for bronchitis. Also has a suspected history of possible GERD. This is a 53-year-old female. The patient is not known to this provider p reviously. Patient presents to the ER with a complaint of chest wall pain, nausea, vomiting, occasional posttussive emesis, dizziness which is described as lightheadedness, and epigastric abdominal cramping. Patient states that her chest wall pain is achy, increases with palpation and decreases with rest, and has been present intermittently over the past couple days. It is similar to previous chest wall pain that she had during her hospitalization last week. Her nausea and vomiting, and she attempts to eat or drink. She reports that she is coughing, and that her primary physician whom she saw recently prescribed an antibiotic, but she has not taken it. She reports that she followed up with a dehydrator, who requested medical clearance/cardiac clearance for endoscopy. She denies urinary symptoms. She denies loss of vision, extremity weakness, numbness. She denies leg pain, leg swelling. -: Gradual Location: chest, abdomen Radiation: non-radiation Severity scale (0 -10): 8 Quality: aching Consistency: intermittent Improves with: other (pain increases with palpation, range of motion. It decr eases with rest. Nausea and vomiting reportedly increase with eating or drinking. Decrease with rest.) - Related Data Home Medications Medication Instructions Recorded Confirmed Last Taken Aspirin [Aspirin BABY CHEW TAB] 81 mg PO QDAY 09/04/13 02/12/19 04/02/14 Atenolol/Chlorthalidone [Tenoretic 1 tab PO QDAY 09/04/13 02/12/19 04/02/14 50-25 mg] Clopidogrel Bisulfate [Plavix] 75 mg PO QDAY 09/04/13 02/12/19 04/02/14 metFORMIN [Glucophage] 500 mg PO BID 09/04/13 02/12/19 04/02/14 Abacavir/Dolutegravir/Lamivudi 1 each PO QDAY 02/12/19 02/12/19 Unknown [Triumeq 600-50-300 mg Tablet] Rosuvastatin Calcium [Crestor] 20 mg PO HS 02/12/19 02/12/19 Unknown Previous Rx's Medication Instructions Recorded Last Taken Type Azithromycin [Zithromax TAB] 500 mg PO QDAY #4 tablet 02/13/19 Unknown Rx Pantoprazole [Protonix] 40 mg PO QDAY #30 tablet 02/13/19 Unknown Rx Albuterol Sulfate [Proair 90 mcg IH Q4HR PRN #2 aer.pow.ba 03/04/19 Unknown Rx Respiclick] Famotidine [Pepcid] 20 mg PO BID #30 tablet 03/04/19 Unknown Rx Fluticasone [Flonase] 1 spray NS QDAY #1 bottle 03/04/19 Unknown Rx Meclizine [Antivert] 25 mg PO TID PRN #30 tablet 03/04/19 Unknown Rx Ondansetron [Zofran Odt] 4 mg PO Q8HR PRN #20 tab.rapdis 03/04/19 Unknown Rx Allergies Allergy/AdvReac Type Severity Reaction Status Date / Time No Known Allergies Allergy Verified 03/04/19 08:53 ED Review of Systems ROS: Stated complaint: VOMITING/DIZZINESS/CHEST PAIN/HEADACHE Other details as noted in HPI Constitutional: malaise Eyes: denies: eye discharge ENT: congestion Respiratory: cough Cardiovascular: chest pain Gastrointestinal: nausea, vomiting Genitourinary: denies: dysuria Musculoskeletal: arthralgia Skin: denies: lesions Neurological: weakness Psychiatric: anxiety ED Past Medical Hx - Past Medical History Hx Hypertension: Yes Hx Heart Attack/AMI: Yes (pt states had RI in march 2013 s/p stent placement by Dr Stephanie Pineda.) Hx Diabetes: Yes Hx COPD: No Hx HIV: Yes Additional medical history: high chol, HIV - Surgical History Hx Coronary Stent: Yes Additional Surgical History: hysterectomy. right knee surgery. left arm and wrist surgery - Social History Smoking Status: Current Every Day Smoker Substance Use Type: Alcohol - Medications Home Medications: Home Medications Medication Instructions Recorded Confirmed Last Taken Type Aspirin [Aspirin BABY CHEW TAB] 81 mg PO QDAY 09/04/13 02/12/19 04/02/14 History Atenolol/Chlorthalidone [Tenoretic 1 tab PO QDAY 09/04/13 02/12/19 04/02/14 History 50-25 mg] Clopidogrel Bisulfate [Plavix] 75 mg PO QDAY 09/04/13 02/12/19 04/02/14 History metFORMIN [Glucophage] 500 mg PO BID 09/04/13 02/12/19 04/02/14 History Abacavir/Dolutegravir/Lamivudi 1 each PO QDAY 02/12/19 02/12/19 Unknown History [Triumeq 600-50-300 mg Tablet] Rosuvastatin Calcium [Crestor] 20 mg PO HS 02/12/19 02/12/19 Unknown History Azithromycin [Zithromax TAB] 500 mg PO QDAY #4 tablet 02/13/19 Unknown Rx Pantoprazole [Protonix] 40 mg PO QDAY #30 tablet 02/13/19 Unknown Rx Albuterol Sulfate [Proair 90 mcg IH Q4HR PRN #2 aer.pow.ba 03/04/19 Unknown Rx Respiclick] Famotidine [Pepcid] 20 mg PO BID #30 tablet 03/04/19 Unknown Rx Fluticasone [Flonase] 1 spray NS QDAY #1 bottle 03/04/19 Unknown Rx Meclizine [Antivert] 25 mg PO TID PRN #30 tablet 03/04/19 Unknown Rx Ondansetron [Zofran Odt] 4 mg PO Q8HR PRN #20 tab.rapdis 03/04/19 Unknown Rx ED Physical Exam - General Limitations: No Limitations General appearance: alert, anxious, obese - Head Head exam: Present: atraumatic, normocephalic - Eye Eye exam: Present: normal appearance, PERRL, EOMI. Absent: nystagmus - ENT ENT exam: Present: normal exam, normal orophraynx, mucous membranes moist, TM's normal bilaterally, normal external ear exam, other (there is no mastoid tenderness) - Neck Neck exam: Present: normal inspection, full ROM. Absent: tenderness, meningismus - Respiratory Respiratory exam: Present: normal lung sounds bilaterally, chest wall tenderness. Absent: respiratory distress - Cardiovascular Cardiovascular Exam: Present: regular rate, normal rhythm, normal heart sounds. Absent: bradycardia, tachycardia, irregular rhythm, systolic murmur, diastolic murmur, rubs, gallop - GI/Abdominal GI/Abdominal exam: Present: soft. Absent: distended, tenderness, guarding, rebound, rigid, pulsatile mass - Extremities Exam Extremities exam: Present: normal inspection, full ROM, other (2+ pulses noted in the bilateral upper, lower extremities. Compartments soft. No long bony tenderness. The pelvis is stable.). Absent: pedal edema, calf tenderness (there is no palpable cord. There is negative Homans sign.) - Back Exam Back exam: Present: normal inspection, full ROM. Absent: tenderness, CVA tender ness (R), CVA tenderness (L), paraspinal tenderness, vertebral tenderness - Neurological Exam Neurological exam: Present: alert (there is no pass pointing. There is normal heel to shaffer. There is negative pronator drift.), oriented X3, normal gait, other (Extraocular movements intact. Tongue midline. No facial droop. Facial sensation intact to light touch in the V1, V2, V3 distribution bilaterally. 5 and 5 strength in 4 extremities.. Sensation is intact to light touch in 4 extremities.). Absent: motor sensory deficit - Psychiatric Psychiatric exam: Present: anxious - Skin Skin exam: Present: warm, dry, intact, normal color. Absent: rash ED Course Vital Signs 03/04/19 03/04/19 03/04/19 08:53 09:32 11:18 Temperature 98.3 F Pulse Rate 71 Pulse Rate [ 63 Anterior Bilateral Throughout] Respiratory 20 Rate Respiratory 12 Rate [Anterior Bilateral Throughout] Blood Pressure 156/66 O2 Sat by Pulse 99 100 Oximetry - Reevaluation(s) Reevaluation #1: 03/04/19 12:01 Differential diagnosis, including but not limited to: GERD, gastritis, costochondritis, bronchitis, gastroparesis, reflux, hiatal hernia, pneumonia Assessment and plan: 52-year-old female with complaint of nausea, vomiting, chest wall pain, cough, nonspecific dizziness. NIH score of 0. No posterior circulation signs noted on neurologic examination. Physical exam otherwise unremarkable. Patient recently had a cardiac risk stratification at this spital. Not tachycardic, not hypoxic, not tachypneic. No lower extremity swelling or asymmetry. I find the patient to be low risk by well's criteria. She is low risk by heart score for major adverse cardiac event. Her symptoms were treated and she is noted by nursing staff to be tolerating liquid feeds. As per prior discussions with cardiology, patient may contact her vulcanizer operator's appointment hotline, to obtain appointment for outpatient risk stratification for endoscopy. ED Medical Decision Making - Lab Data Result diagrams: 03/04/19 10:05 03/04/19 10:05 Vital Signs 03/04/19 03/04/19 03/04/19 08:53 09:32 11:18 Temperature 98.3 F Pulse Rate 71 Pulse Rate [ 63 Anterior Bilateral Throughout] Respiratory 20 Rate Respiratory 12 Rate [Anterior Bilateral Throughout] Blood Pressure 156/66 O2 Sat by Pulse 99 100 Oximetry Lab Results 03/04/19 03/04/19 03/04/19 Range/Units 10:05 10:05 10:05 WBC 5.1 (4.5-11.0) K/mm3 RBC 4.09 (3.65-5.03) M/mm3 Hgb 12.4 (10.1-14.3) gm/dl Hct 37.4 (30.3-42.9) % MCV 92 (79-97) fl MCH 30 (28-32) pg MCHC 33 (30-34) % RDW 15.4 H (13.2-15.2) % Plt Count 287 (140-440) K/mm3 PT 13.4 (12.2-14.9) Sec. INR 1.05 (0.87-1.13) Sodium 138 (137-145) mmol/L Potassium 3.8 (3.6-5.0) mmol/L Chloride 101.4 (98-107) mmol/L Carbon Dioxide 28 (22-30) mmol/L Anion Gap 12 mmol/L BUN 6 L (7-17) mg/dL Creatinine 0.7 (0.7-1.2) mg/dL Estimated GFR > 60 ml/min BUN/Creatinine Ratio 9 % Glucose 124 H (65-100) mg/dL Calcium 9.1 (8.4-10.2) mg/dL Magnesium (1.7-2.3) mg/dL Total Bilirubin 0.30 (0.1-1.2) mg/dL AST 7 (5-40) units/L ALT < 5 L (7-56) units/L Alkaline Phosphatase 97 (35-129) units/L Total Creatine Kinase (30-135) units/L Total Protein 7.7 (6.3-8.2) g/dL Albumin 3.2 L (3.9-5) g/dL Albumin/Globulin Ratio 0.7 % 03/04/19 Range/Units 10:05 WBC (4.5-11.0) K/mm3 RBC (3.65-5.03) M/mm3 Hgb (10.1-14.3) gm/dl Hct (30.3-42.9) % MCV (79-97) fl MCH (28-32) pg MCHC (30-34) % RDW (13.2-15.2) % Plt Count (140-440) K/mm3 PT (12.2-14.9) Sec. INR (0.87-1.13) Sodium (137-145) mmol/L Potassium (3.6-5.0) mmol/L Chloride (98-107) mmol/L Carbon Dioxide (22-30) mmol/L Anion Gap mmol/L BUN (7-17) mg/dL Creatinine (0.7-1.2) mg/dL Estimated GFR ml/min BUN/Creatinine Ratio % Glucose (65-100) mg/dL Calcium (8.4-10.2) mg/dL Magnesium 1.50 L (1.7-2.3) mg/dL Total Bilirubin (0.1-1.2) mg/dL AST (5-40) units/L ALT (7-56) units/L Alkaline Phosphatase (35-129) units/L Total Creatine Kinase 32 (30-135) units/L Total Protein (6.3-8.2) g/dL Albumin (3.9-5) g/dL Albumin/Globulin Ratio % - EKG Data -: EKG Interpreted by Wi EKG shows normal: sinus rhythm - EKG Data When compared to previous EKG there are: previous EKG unavailable 03/04/19 12:03 EKG #1 shows a sinus rhythm, 65 bpm, normal axis, QTC prolonged, not consistent with ST elevation myocardial infarction. EKG #2 is unchanged from prior. - Radiology Data Radiology results: report reviewed, image reviewed Noncontrast CT scan of the brain is negative for acute disease. X-ray the chest is negative for acute disease. Critical care attestation.: If time is entered above; I have spent that time in minutes in the direct care of this critically ill patient, excluding procedure time. ED Disposition Clinical Impression: Chest wall pain, History of nausea and vomiting Disposition: TO HOME OR SELFCARE Is pt being admited?: No Does the pt Need Aspirin: No Condition: Stable Instructions: Chest Pain (ED) Additional Instructions: Continue current outpatient medications. Avoid consumption of Motrin, ibuprofen, Naprosyn, Aleve. Avoid consumption of heavy, spicy foods. Please call your vulcanizer operator at [phone] to obtain expedited outpatient appointments for clearance/stratification assessment for upper endoscopy. Please follow-up with your vulcanizer operator within the next week. Please follow up with her dehydrator within the next 2 weeks. Take the medications as needed/directed. Please return to the emergency room right away with new, worsening or different symptoms not present on initial emergency room evaluation. Patient does not require antibiotics for presumed bronchitis, symptoms will likely last for 6 weeks, irrespective of antibiotic administra tion. Patient may take the Flonase, albuterol as needed for symptoms of cough and nasal congestion. His medications can be taken as needed. Patient may take Zofran as needed for nausea, Pepcid as needed for abdominal pain, and meclizine as needed for sensation of dizziness. Please make certain to drink 4 cups of water per day. Avoid consumption of salty foods, and sugary drinks. Recommend weight loss, and exercise as tolerated. Referrals: VIGNESH SORTO MD [Primary Care Provider] - 3-5 Days MILTON BERRY MD [Staff Physician] - 7-10 days MIRIAM EPSTEIN MD [Staff Physician] - 7-10 days
[2019-03-04 13:11] VITALS: BP 165/65
== END 2019-03-04 13:11 | disposition home or self-care (01) ==
LOC: ED 08:42
DX: R07.89 Other chest pain (principal); R11.2 Nausea with vomiting, unspecified; R42 Dizziness and giddiness; R10.13 Epigastric pain; R05 Cough; I11.0 Hypertensive heart disease with heart failure; E11.9 Type 2 diabetes mellitus without complications; I50.9 Heart failure, unspecified; F41.9 Anxiety disorder, unspecified; E78.00 Pure hypercholesterolemia, unspecified; F17.200 Nicotine dependence, unspecified, uncomplicated; Z95.1 Presence of aortocoronary bypass graft; Z21 Asymptomatic human immunodeficiency virus [HIV] infection status; Z79.82 Long term (current) use of aspirin; Z79.899 Other long term (current) drug therapy; Z79.84 Long term (current) use of oral hypoglycemic drugs; Z90.710 Acquired absence of both cervix and uterus; Z98.890 Other specified postprocedural states
CPT/HCPCS: 36415; 70450; 71045; 80053; 82550; 83735; 84484; 85027; 85610; 93005; 93010; 94640; 96365; 96375; 99285; J1885; J2405; J3475; J7040

== ENCOUNTER 2019-05-30 16:15 | Emergency (ER) | payer MEDICARE ==
--- NOTE | 2019-05-30 17:07 | Event Note ---
ED Screening Note Date of service: 05/30/19 Time: 17:03 ED Screening Note: This is a 53 y.o. F. that presents to the ER with left flank pain for 4 days. Patient reports left flank pain for months intermittently. + nausea, weakness, and left flank pain Current smoker - radiating pain, urinary frequency, urgency, dysuria, fever, chills, or vaginal discharge PMH DM2, HTN, HIV, LA with 2 stents, CAD This initial assessment/diagnostic orders/clinical plan/treatment(s) is/are subject to change based on patients health status, clinical progression and re- assessment by fellow clinical providers in the ED. Further treatment and workup at subsequent clinical providers discretion. Patient/guardian urged not to elope from the ED as their condition may be serious if not clinically assessed and managed. Initial orders include: Labs and CT of abdomen and pelvis
[2019-05-30 17:33] LABS: Basophils % (Auto) 1.4 % (0.0-1.8); Eosinophils # (Auto) 0.1 K/mm3 (0.0-0.4); Eosinophils % (Auto) 2.4 % (0.0-4.3); Hemoglobin 14.2 gm/dl (10.1-14.3); Lymphocytes # (Auto) 1.2 K/mm3 (1.2-5.4); Lymphocytes % (Auto) 34.4 % (13.4-35.0); Mean Corpuscular HGB Conc 34 % (30-34); Mean Corpuscular Volume 92 fl (79-97); Monocytes # (Auto) 0.2 K/mm3 (0.0-0.8); Monocytes % (Auto) 6.3 % (0.0-7.3); Platelet Count 267 K/mm3 (140-440); Red Blood Count 4.57 M/mm3 (3.65-5.03); Red Cell Distribution Width 16.5 % (13.2-15.2)
[2019-05-30] MEDS ORDERED: SODIUM CHLORIDE 0.9% 500 ML 500 ML IV ONE (17:55)
[2019-05-30] MEDS ORDERED: ONDANSETRON 4 MG/2 ML INJ IV ONE (17:55)
[2019-05-30] MEDS ORDERED: MORPHINE 4 MG/1 ML INJ IV ONE (17:55)
--- NOTE | 2019-05-30 17:57 | Emergency Department Report ---
ED General Adult HPI - General Chief complaint: Weakness Stated complaint: LT SIDE PAIN/WEAK/NAUSEA Time Seen by Provider: 05/30/19 17:02 Source: patient, RN notes reviewed, old records reviewed Mode of arrival: Ambulatory Limitations: No Limitations - History of Present Illness Initial comments: During the history and physical, I am survey operations director, escorted/escorted by RN Saman Alcantara The patient is known to this provider previously. The patient has a past medical history of HIV, on antiviral therapy, heart disease, diabetes, hypertension, stent, nicotine dependence and high cholesterol. Patient was recently admitted to this hospital for cardiac risk stratification, and a negative nuclear stress test, conjunction with cardiology, also discharged with Zithromax, Protonix for bronchitis, and possible GERD. Patient was instructed to follow up with outpatient gastroenterology. She tells me that she has done so. She tells me that to the best of her recollection, she's not had a colonoscopy, or an endoscopy. The patient presents to the ER today with a primary complaint of left lower quadrant pain. This pain has been present for 3 days. It increases with eating. It occasionally radiates to the epigastric region and left breast. There are no fevers. There is positive nausea and vomiting. There is no cough. She denies chest wall pain at this time. She denies urinary symptoms at this time. She denies extremity pain at this time. -: Gradual, days(s) Location: pelvis Radiation: other Severity scale (0 -10): 8 Quality: aching Consistency: intermittent Improves with: rest Worsens with: eating, movement - Related Data Home Medications Medication Instructions Recorded Confirmed Last Taken Aspirin [Aspirin BABY CHEW TAB] 81 mg PO QDAY 09/04/13 02/12/19 04/02/14 Atenolol/Chlorthalidone [Tenoretic 1 tab PO QDAY 09/04/13 02/12/19 04/02/14 50-25 mg] Clopidogrel Bisulfate [Plavix] 75 mg PO QDAY 09/04/13 02/12/19 04/02/14 metFORMIN [Glucophage] 500 mg PO BID 09/04/13 02/12/19 04/02/14 Abacavir/Dolutegravir/Lamivudi 1 each PO QDAY 02/12/19 02/12/19 Unknown [Triumeq 600-50-300 mg Tablet] Rosuvastatin Calcium [Crestor] 20 mg PO HS 02/12/19 02/12/19 Unknown Previous Rx's Medication Instructions Recorded Last Taken Type Azithromycin [Zithromax TAB] 500 mg PO QDAY #4 tablet 02/13/19 Unknown Rx Pantoprazole [Protonix] 40 mg PO QDAY #30 tablet 02/13/19 Unknown Rx Albuterol Sulfate [Proair 90 mcg IH Q4HR PRN #2 aer.pow.ba 03/04/19 Unknown Rx Respiclick] Famotidine [Pepcid] 20 mg PO BID #30 tablet 03/04/19 Unknown Rx Fluticasone [Flonase] 1 spray NS QDAY #1 bottle 03/04/19 Unknown Rx Meclizine [Antivert] 25 mg PO TID PRN #30 tablet 03/04/19 Unknown Rx Ondansetron [Zofran Odt] 4 mg PO Q8HR PRN #20 tab.rapdis 03/04/19 Unknown Rx Acetaminophen [Non-Aspirin Extra 500 mg PO Q6HR PRN #30 tablet 05/30/19 Unknown Rx Strength] Famotidine [Pepcid] 20 mg PO BID #10 tablet 05/30/19 Unknown Rx Ondansetron [Zofran Odt] 4 mg PO Q8HR PRN #20 tab.rapdis 05/30/19 Unknown Rx Allergies Allergy/AdvReac Type Severity Reaction Status Date / Time No Known Allergies Allergy Verified 05/30/19 17:04 ED Review of Systems ROS: Stated complaint: LT SIDE PAIN/WEAK/NAUSEA Other details as noted in HPI Constitutional: malaise. denies: fever Eyes: denies: eye discharge ENT: denies: congestion Respiratory: denies: wheezing Cardiovascular: denies: syncope Gastrointestinal: abdominal pain, nausea, vomiting. denies: diarrhea Genitourinary: denies: dysuria Musculoskeletal: denies: back pain Skin: denies: lesions Neurological: denies: weakness Psychiatric: anxiety ED Past Medical Hx - Past Medical History Hx Hypertension: Yes Hx Heart Attack/AMI: Yes (pt states had FL in march 2013 s/p stent placement by Dr Stephanie Pineda.) Hx Diabetes: Yes Hx COPD: No Hx HIV: Yes Additional medical history: high chol, HIV - Surgical History Hx Coronary Stent: Yes Additional Surgical History: hysterectomy. right knee surgery. left arm and wrist surgery - Social History Smoking Status: Current Every Day Smoker Substance Use Type: Alcohol - Medications Home Medications: Home Medications Medication Instructions Recorded Confirmed Last Taken Type Aspirin [Aspirin BABY CHEW TAB] 81 mg PO QDAY 09/04/13 02/12/19 04/02/14 History Atenolol/Chlorthalidone [Tenoretic 1 tab PO QDAY 09/04/13 02/12/19 04/02/14 History 50-25 mg] Clopidogrel Bisulfate [Plavix] 75 mg PO QDAY 09/04/13 02/12/19 04/02/14 History metFORMIN [Glucophage] 500 mg PO BID 09/04/13 02/12/19 04/02/14 History Abacavir/Dolutegravir/Lamivudi 1 each PO QDAY 02/12/19 02/12/19 Unknown History [Triumeq 600-50-300 mg Tablet] Rosuvastatin Calcium [Crestor] 20 mg PO HS 02/12/19 02/12/19 Unknown History Azithromycin [Zithromax TAB] 500 mg PO QDAY #4 tablet 02/13/19 Unknown Rx Pantoprazole [Protonix] 40 mg PO QDAY #30 tablet 02/13/19 Unknown Rx Albuterol Sulfate [Proair 90 mcg IH Q4HR PRN #2 aer.pow.ba 03/04/19 Unknown Rx Respiclick] Famotidine [Pepcid] 20 mg PO BID #30 tablet 03/04/19 Unknown Rx Fluticasone [Flonase] 1 spray NS QDAY #1 bottle 03/04/19 Unknown Rx Meclizine [Antivert] 25 mg PO TID PRN #30 tablet 03/04/19 Unknown Rx Ondansetron [Zofran Odt] 4 mg PO Q8HR PRN #20 tab.rapdis 03/04/19 Unknown Rx Acetaminophen [Non-Aspirin Extra 500 mg PO Q6HR PRN #30 tablet 05/30/19 Unknown Rx Strength] Famotidine [Pepcid] 20 mg PO BID #10 tablet 05/30/19 Unknown Rx Ondansetron [Zofran Odt] 4 mg PO Q8HR PRN #20 tab.rapdis 05/30/19 Unknown Rx ED Physical Exam - General Limitations: No Limitations General appearance: alert, in no apparent distress, anxious, obese - Head Head exam: Present: atraumatic, normocephalic - Eye Eye exam: Present: normal appearance, EOMI. Absent: nystagmus - ENT ENT exam: Present: normal exam, normal orophraynx, mucous membranes moist, normal external ear exam - Neck Neck exam: Present: normal inspection, full ROM. Absent: tenderness, meningismus - Respiratory Respiratory exam: Present: normal lung sounds bilaterally, chest wall tenderness, other (chaperoned by [place]i Alcantara). Absent: respiratory distress - Cardiovascular Cardiovascular Exam: Present: regular rate, normal rhythm, normal heart sounds. Absent: bradycardia, tachycardia, irregular rhythm, systolic murmur, diastolic murmur, rubs, gallop - GI/Abdominal GI/Abdominal exam: Present: soft, tenderness, other (there is left lower quadrant tenderness, there is left flank tenderness). Absent: distended, guarding, rebound, rigid, pulsatile mass - Extremities Exam Extremities exam: Present: normal inspection, full ROM, other (2+ pulses noted in the bilateral upper, lower extremities. There is no long bone tenderness. Musculoskeletal compartments are soft. The pelvis is stable.). Absent: pedal edema, joint swelling, calf tenderness - Back Exam Back exam: Present: normal inspection, full ROM, CVA tenderness (L), paraspinal tenderness. Absent: tenderness, CVA tenderness (R), vertebral tenderness - Neurological Exam Neurological exam: Present: alert, oriented X3, other (there is no facial droop. The tongue is midline. Extraocular movements are intact bilaterally. Patient speaking in full complete sentences. Shoulder shrug is intact bilaterally. Hearing is grossly intact bilaterally. Visual acuity intact to finger counting and color perception at a close distance. 5/5 strength 4 extremities. Sensation intact to light touch in 4 extremities.). Absent: motor sensory deficit - Psychiatric Psychiatric exam: Present: anxious - Skin Skin exam: Present: warm, dry, intact, normal color. Absent: rash ED Course Vital Signs 05/30/19 05/30/19 05/30/19 17:04 17:55 18:00 Temperature 98.3 F Pulse Rate 77 72 72 Respiratory 20 12 15 Rate Blood Pressure 139/63 Blood Pressure 132/64 [Right] O2 Sat by Pulse 99 99 98 Oximetry 05/30/19 05/30/19 05/30/19 18:15 18:30 18:31 Temperature Pulse Rate 72 72 Respiratory 16 16 18 Rate Blood Pressure 139/63 109/49 Blood Pressure [Right] O2 Sat by Pulse 96 97 Oximetry 05/30/19 05/30/19 05/30/19 18:45 19:01 19:15 Temperature Pulse Rate 74 78 74 Respiratory 11 L 12 13 Rate Blood Pressure 109/49 135/69 145/79 Blood Pressure [Right] O2 Sat by Pulse 99 99 98 Oximetry 05/30/19 05/30/19 05/30/19 19:31 19:49 20:01 Temperature Pulse Rate 68 71 77 Respiratory 14 23 Rate Blood Pressure 145/68 144/72 Blood Pressure [Right] O2 Sat by Pulse 99 100 93 Oximetry 05/30/19 05/30/19 20:15 20:31 Temperature Pulse Rate 77 79 Respiratory 18 20 Rate Blood Pressure 160/60 178/76 Blood Pressure [Right] O2 Sat by Pulse 99 95 Oximetry - Reevaluation(s) Reevaluation #1: 05/30/19 18:43 Differential diagnosis, including but not limited to: Colitis, diverticulitis, abscess, renal colic, urinary tract infection, perforated viscus, pneumonia, acute coronary syndrome, pulmonary embolism, costochondritis Assessment and plan: 53-year-old female with a primary complaint of left lower quadrant pain, and other associated symptoms. The patient is afebrile with reassuring vital signs. She is reproducible left lower quadrant abdominal tenderness. She is not tachycardic and she is not hypoxic. She is low risk by well's criteria. Recently had a cardiac risk stratification. We will treat her pain, obtain screening laboratory studies, send d-dimer, and reassess after her data points have resulted. Of note, patient had a nuclear cardiac stress test at this hospital within the past few months, her cardiac risk factor profile is reviewed and appreciated, but she is received a risk stratification recently. Her EKG today appears to be unchanged from prior. Reevaluation #2: 05/30/19 21:[address] scan of the chest is negative for acute disease. CT scan of the abdomen pelvis is negative for acute disease. I have not witnessed any active vomiting. Patient has presented to this hospital in the past with similar complaints. She went to follow-up with her outpatient GI specialist and tourist information assistant. The patient at this point time has not met criteria for inpatient admission or hospitalization. ED Medical Decision Making - Lab Data Result diagrams: 05/30/19 17:19 05/30/19 17:19 Vital Signs 05/30/19 17:04 Temperature 98.3 F Pulse Rate 77 Respiratory 20 Rate Blood Pressure 132/64 [Right] O2 Sat by Pulse 99 Oximetry Lab Results 05/30/19 05/30/19 Range/Units 17:19 17:19 WBC 3.5 L (4.5-11.0) K/mm3 RBC 4.57 (3.65-5.03) M/mm3 Hgb 14.2 (10.1-14.3) gm/dl Hct 42.0 (30.3-42.9) % MCV 92 (79-97) fl MCH 31 (28-32) pg MCHC 34 (30-34) % RDW 16.5 H (13.2-15.2) % Plt Count 267 (140-440) K/mm3 Lymph % (Auto) 34.4 (13.4-35.0) % [place] % (Auto) 6.3 (0.0-7.3) % Eos % (Auto) 2.4 (0.0-4.3) % Baso % (Auto) 1.4 (0.0-1.8) % Lymph # 1.2 (1.2-5.4) K/mm3 [place]ven # 0.2 (0.0-0.8) K/mm3 Eos # 0.1 (0.0-0.4) K/mm3 Baso # 0.0 (0.0-0.1) K/mm3 Seg Neutrophils % 55.5 (40.0-70.0) % Seg Neutrophils # 2.0 (1.8-7.7) K/mm3 Sodium 130 L (137-145) mmol/L Potassium 3.8 (3.6-5.0) mmol/L Chloride 94.8 L (98-107) mmol/L Carbon Dioxide 21 L (22-30) mmol/L Anion Gap 18 mmol/L BUN 10 (7-17) mg/dL Creatinine 0.7 (0.7-1.2) mg/dL Estimated GFR > 60 ml/min BUN/Creatinine Ratio 14 % Glucose 119 H (65-100) mg/dL Calcium 8.8 (8.4-10.2) mg/dL Total Bilirubin 0.30 (0.1-1.2) mg/dL AST 16 (5-40) units/L ALT 6 L (7-56) units/L Alkaline Phosphatase 109 (35-129) units/L Total Protein 9.0 H (6.3-8.2) g/dL Albumin 3.7 L (3.9-5) g/dL Albumin/Globulin Ratio 0.7 % Lipase 31 (13-60) units/L Vital Signs 05/30/19 05/30/19 17:04 18:30 Temperature 98.3 F Pulse Rate 77 Respiratory 20 16 Rate Blood Pressure 132/64 [Right] O2 Sat by Pulse 99 Oximetry Lab Results 05/30/19 05/30/19 05/30/19 Range/Units 17:19 17:19 18:00 WBC 3.5 L (4.5-11.0) K/mm3 RBC 4.57 (3.65-5.03) M/mm3 Hgb 14.2 (10.1-14.3) gm/dl Hct 42.0 (30.3-42.9) % MCV 92 (79-97) fl MCH 31 (28-32) pg MCHC 34 (30-34) % RDW 16.5 H (13.2-15.2) % Plt Count 267 (140-440) K/mm3 Lymph % (Auto) 34.4 (13.4-35.0) % Craven % (Auto) 6.3 (0.0-7.3) % Eos % (Auto) 2.4 (0.0-4.3) % Baso % (Auto) 1.4 (0.0-1.8) % Lymph # 1.2 (1.2-5.4) K/mm3 Craven # 0.2 (0.0-0.8) K/mm3 Eos # 0.1 (0.0-0.4) K/mm3 Baso # 0.0 (0.0-0.1) K/mm3 Seg Neutrophils % 55.5 (40.0-70.0) % Seg Neutrophils # 2.0 (1.8-7.7) K/mm3 PT (12.2-14.9) Sec. INR (0.87-1.13) D-Dimer (0-234) ng/mlDDU Sodium 130 L (137-145) mmol/L Potassium 3.8 (3.6-5.0) mmol/L Chloride 94.8 L (98-107) mmol/L Carbon Dioxide 21 L (22-30) mmol/L Anion Gap 18 mmol/L BUN 10 (7-17) mg/dL Creatinine 0.7 (0.7-1.2) mg/dL Estimated GFR > 60 ml/min BUN/Creatinine Ratio 14 % Glucose 119 H (65-100) mg/dL Calcium 8.8 (8.4-10.2) mg/dL Magnesium (1.7-2.3) mg/dL Total Bilirubin 0.30 (0.1-1.2) mg/dL AST 16 (5-40) units/L ALT 6 L (7-56) units/L Alkaline Phosphatase 109 (35-129) units/L Total Creatine Kinase (30-135) units/L Troponin T (0.00-0.029) ng/mL Total Protein 9.0 H (6.3-8.2) g/dL Albumin 3.7 L (3.9-5) g/dL Albumin/Globulin Ratio 0.7 % Lipase 31 (13-60) units/L Urine Color Yellow (Yellow) Urine Turbidity Clear (Clear) Urine pH 5.0 (5.0-7.0) Ur Specific [place] 1.013 (1.003-1.030) Urine Protein 30 mg/dl (Negative) mg/dL Urine Glucose (UA) Neg (Negative) mg/dL Urine Ketones Neg (Negative) mg/dL Urine Blood Neg (Negative) Urine Nitrite Neg (Negative) Urine Bilirubin Neg (Negative) Urine Urobilinogen < 2.0 (<2.0) mg/dL Ur Leukocyte Esterase Neg (Negative) Urine WBC (Auto) 1.0 (0.0-6.0) /HPF Urine RBC (Auto) 2.0 (0.0-6.0) /HPF U Epithel Cells (Auto) 1.0 (0-13.0) /HPF 05/30/19 05/30/19 Range/Units 18:08 18:08 WBC (4.5-11.0) K/mm3 RBC (3.65-5.03) M/mm3 Hgb (10.1-14.3) gm/dl Hct (30.3-42.9) % MCV (79-97) fl MCH (28-32) pg MCHC (30-34) % RDW (13.2-15.2) % Plt Count (140-440) K/mm3 Lymph % (Auto) (13.4-35.0) % Craven % (Auto) (0.0-7.3) % Eos % (Auto) (0.0-4.3) % Baso % (Auto) (0.0-1.8) % Lymph # (1.2-5.4) K/mm3 [place]ven # (0.0-0.8) K/mm3 Eos # (0.0-0.4) K/mm3 Baso # (0.0-0.1) K/mm3 Seg Neutrophils % (40.0-70.0) % Seg Neutrophils # (1.8-7.7) K/mm3 PT 13.6 (12.2-14.9) Sec. INR 1.07 (0.87-1.13) D-Dimer 472.76 H (0-234) ng/mlDDU Sodium (137-145) mmol/L Potassium (3.6-5.0) mmol/L Chloride (98-107) mmol/L Carbon Dioxide (22-30) mmol/L Anion Gap mmol/L BUN (7-17) mg/dL Creatinine (0.7-1.2) mg/dL Estimated GFR ml/min BUN/Creatinine Ratio % Glucose (65-100) mg/dL Calcium (8.4-10.2) mg/dL Magnesium 1.70 (1.7-2.3) mg/dL Total Bilirubin (0.1-1.2) mg/dL AST (5-40) units/L ALT (7-56) units/L Alkaline Phosphatase (35-129) units/L Total Creatine Kinase 48 (30-135) units/L Troponin T < 0.010 (0.00-0.029) ng/mL Total Protein (6.3-8.2) g/dL Albumin (3.9-5) g/dL Albumin/Globulin Ratio % Lipase (13-60) units/L Urine Color (Yellow) Urine Turbidity (Clear) Urine pH (5.0-7.0) Ur Specific [place] (1.003-1.030) Urine Protein (Negative) mg/dL Urine Glucose (UA) (Negative) mg/dL Urine Ketones (Negative) mg/dL Urine Blood (Negative) Urine Nitrite (Negative) Urine Bilirubin (Negative) Urine Urobilinogen (<2.0) mg/dL Ur Leukocyte Esterase (Negative) Urine WBC (Auto) (0.0-6.0) /HPF Urine RBC (Auto) (0.0-6.0) /HPF U Epithel Cells (Auto) (0-13.0) /HPF - EKG Data -: EKG Interpreted by Nh EKG shows normal: sinus rhythm Rate: normal - EKG Data When compared to previous EKG there are: no significant change 05/30/19 18:44 The EKG shows a sinus rhythm, 73 bpm, normal axis, QTC 467 ms, there is left ventricular hypertrophy, there is motion artifact, the EKG is unchanged from prior EKG from March 2019. This EKG is not consistent with ST elevation myocardial infarction. - Radiology Data Radiology results: pending Critical care attestation.: If time is entered above; I have spent that time in minutes in the direct care of this critically ill patient, excluding procedure time. ED Disposition Clinical Impression: Chest wall pain, Left lower quadrant abdominal pain Disposition: - TO HOME OR SELFCARE Is pt being admited?: No Does the pt Need Aspirin: No Condition: Stable Instructions: Chest Pain (ED) Additional Instructions: Take the pain medications as needed/directed. Avoid consumption of Motrin, ibuprofen, Naprosyn, Aleve. Do not take metformin medication for the next 2 days, patient takes his medication. Recommend follow-up with an outpatient primary care doctor or tourist information assistant for chest wall pain within the next 5-7 days. Recommend follow-up with a adult high school instructor or primary care doctor for left lower quadrant abdominal pain within the next 7-10 days. Do not take metformin medication for the next 2 days, if the patient takes this medication. Return to the emergency room right away with new pain, worsened pain, migration of pain, projectile vomiting, change in mental status, confusion, inability to tolerate liquid feeds. Referrals: CHRISTY ANDRES MD [Primary Care Provider] - 3-5 Days [facility] [Provider Group] - 3-5 Days [facility] [Provider Group] - 3-5 Days
[2019-05-30 18:17] LABS: Alanine Aminotransferase 6 units/L (7-56); Albumin 3.7 g/dL (3.9-5); BUN/Creatinine Ratio 14; Blood Urea Nitrogen 10 mg/dL (7-17); Calcium 8.8 mg/dL (8.4-10.2); Hemolysis Index 50
[2019-05-30] MEDS ORDERED: SODIUM CHLORIDE 0.9% 1000 ML 1,000 ML ONE (18:31)
[2019-05-30 18:46] LABS: INR 1.07 (0.87-1.13)
[2019-05-30 18:48] LABS: Bilirubin,Urine NEG (Negative); Blood,Urine NEG (Negative); Color,Urine Yellow (Yellow); Urobilinogen,Urine < 2.0 mg/dL (<2.0)
--- NOTE | 2019-05-30 20:22 | Cat Scan Report ---
CT angiography of the chest with intravenous contrast and multiplanar MIPS reconstructions INDICATION / CLINICAL INFORMATION: Upper abdominal pain, left breast pain and elevated d-dimer. TECHNIQUE: Axial CT images were obtained after injection of 100 cc Omnipaque 350 IV contrast using CTA protocol. 3 plane MIP / 3D reconstructions were produced. All CT scans at this location are performed using CT dose reduction for ALARA by means of automated exposure control. COMPARISON: None available. FINDINGS: There is good opacification of the pulmonary arterial system bilaterally without intraluminal filling defect to suggest acute PTE. The thoracic aorta is normal in caliber without dissection. There is mi ld coronary artery calcification. There is also mild aortic valvular calcification. The tracheobronchial tree is normal. There is mild scarring and bronchiectasis in the right lower lob e. Minimal bibasilar dependent atelectasis is present. There is no evidence of adenopathy or effusion . The visualized upper abdomen is normal. No acute osseous abnormality is seen. IMPRESSION:No evidence of acute PTE. Signer Name: Emile Bunch MD Signed: 05/30/2019 8:18 PM Workstation Name: [id number]
--- NOTE | 2019-05-30 20:24 | Cat Scan Report ---
CT ABDOMEN AND PELVIS WITH CONTRAST INDICATION: llq abd pain. COMPARISON: CT abdomen and pelvis with contrast from 10/17/2018. TECHNIQUE: Axial, coronal and sagittal CT imaging of the abdomen and pelvis was performed after inje ction of 100 mL Omnipaque [address] scans at this location are performed using CT dose re duction for ALARA by means of automated exposure control. FINDINGS: LOWER CHEST: No significant abnormality. LIVER: No significant abnormality. BILIARY: No significant abnormality. PANCREAS: No significant abnormality. SPLEEN: No significant abnormality. ADRENALS: The right adrenal gland is unremarkable. There is a stable probable left adrenal adenoma. KIDNEYS AND URETERS: No significant abnormality. GI TRACT: No significant abnormality of the stomach, small bowel or colon. Unremarkable appendix. PERITONEUM: No free fluid. No free air. No fluid collection. LYMPH NODES: No significant adenopathy. VASCULATURE: The aorta is normal in caliber with mild generalized atherosclerosis. URINARY BLADDER: No significant abnormality. REPRODUCTIVE ORGANS: Prior hysterectomy. No significant abnormality. ADDITIONAL FINDINGS: None. SKELETAL SYSTEM: No acute abnormality. There are degenerative changes of the spine and pelvis. IMPRESSION: 1. No acute abnormality of the abdomen or pelvis. 2. Additional findings as above. Signer Name: Isai Kidd MD Signed: 05/30/2019 8:19 PM Workstation Name: [id number]
[2019-05-30] MEDS ORDERED: KETOROLAC 30 MG/1 ML INJ IV ONE (20:58)
[2019-05-30 22:46] VITALS: BP 161/68
== END 2019-05-30 22:46 | disposition home or self-care (01) ==
LOC: ED 16:15
DX: R07.89 Other chest pain (principal); R10.32 Left lower quadrant pain; R11.0 Nausea; I10 Essential (primary) hypertension; I25.2 Old myocardial infarction; E11.9 Type 2 diabetes mellitus without complications; F17.200 Nicotine dependence, unspecified, uncomplicated; Z21 Asymptomatic human immunodeficiency virus [HIV] infection status; Z90.710 Acquired absence of both cervix and uterus; Z98.890 Other specified postprocedural states; Z79.899 Other long term (current) drug therapy
CPT/HCPCS: 36415; 71275; 74177; 80053; 81001; 82550; 83690; 83735; 84484; 85025; 85379; 85610; 93005; 93010; 96374; 96375; 99284; J1885; J2270; J2405; J7030; Q9967

== ENCOUNTER 2019-08-23 11:18 | Emergency (ER) | payer MEDICARE ==
[2019-08-23 11:23] VITALS: BP 145/56
--- NOTE | 2019-08-23 13:14 | Emergency Department Report ---
ED General Adult HPI - General Chief complaint: Skin Rash Stated complaint: TINGLING HAND/FEET/ RASH Time Seen by Provider: 08/23/19 11:52 Source: patient Mode of arrival: Ambulatory Limitations: No Limitations - History of Present Illness Initial comments: 54-year-old -[place] female patient with history of diabetes, CA, hypertension, and HIV present with complaints of effuse itchy rash 2 weeks and worsening numbness and tingling in her hands and feet bilaterally 2 days. Patient states she is compliant with diabetic medications and her glucose normally runs 109-120. She denies any fever/chills/body aches and denies any recent camping or known insect bites. She denies rash being painful states Benadryl helps. Patient admits to no history of neuropathy and states she has been out of her gabapentin for months. She denies any headache, vision changes, dizziness, confusion, or unilateral weakness. - Related Data Home Medications Medication Instructions Recorded Confirmed Last Taken Aspirin [Aspirin BABY CHEW TAB] 81 mg PO QDAY 09/04/13 02/12/19 04/02/14 Atenolol/Chlorthalidone [Tenoretic 1 tab PO QDAY 09/04/13 02/12/19 04/02/14 50-25 mg] Clopidogrel Bisulfate [Plavix] 75 mg PO QDAY 09/04/13 02/12/19 04/02/14 metFORMIN [Glucophage] 500 mg PO BID 09/04/13 02/12/19 04/02/14 Abacavir/Dolutegravir/Lamivudi 1 each PO QDAY 02/12/19 02/12/19 Unknown [Triumeq 600-50-300 mg Tablet] Rosuvastatin Calcium [Crestor] 20 mg PO HS 02/12/19 02/12/19 Unknown Previous Rx's Medication Instructions Recorded Last Taken Type Azithromycin [Zithromax TAB] 500 mg PO QDAY #4 tablet 02/13/19 Unknown Rx Pantoprazole [Protonix] 40 mg PO QDAY #30 tablet 02/13/19 Unknown Rx Albuterol Sulfate [Proair 90 mcg IH Q4HR PRN #2 aer.pow.ba 03/04/19 Unknown Rx Respiclick] Famotidine [Pepcid] 20 mg PO BID #30 tablet 03/04/19 Unknown Rx Fluticasone [Flonase] 1 spray NS QDAY #1 bottle 03/04/19 Unknown Rx Meclizine [Antivert] 25 mg PO TID PRN #30 tablet 03/04/19 Unknown Rx Ondansetron [Zofran Odt] 4 mg PO Q8HR PRN #20 tab.rapdis 03/04/19 Unknown Rx Acetaminophen [Non-Aspirin Extra 500 mg PO Q6HR PRN #30 tablet 05/30/19 Unknown Rx Strength] Famotidine [Pepcid] 20 mg PO BID #10 tablet 05/30/19 Unknown Rx Ondansetron [Zofran Odt] 4 mg PO Q8HR PRN #20 tab.rapdis 05/30/19 Unknown Rx Gabapentin 300 mg PO BID #60 capsule 08/23/19 Unknown Rx Triamcinolone 0.1% [Kenalog 0.1% 1 applic TP TID 5 Days #1 tube 08/23/19 Unknown Rx CREAM] Allergies Allergy/AdvReac Type Severity Reaction Status Date / Time No Known Allergies Allergy Verified 05/30/19 17:04 ED Review of Systems ROS: Stated complaint: TINGLING HAND/FEET/ RASH Other details as noted in HPI Comment: All other systems reviewed and negative ED Past Medical Hx - Past Medical History Previous Medical History?: Yes Hx Hypertension: Yes Hx Heart Attack/AMI: Yes (pt states had CA in march 2013 s/p stent placement by Dr Stephanie Pineda.) Hx Diabetes: Yes Hx COPD: No Hx HIV: Yes Additional medical history: high chol, HIV - Surgical History Past Surgical History?: Yes Hx Coronary Stent: Yes Additional Surgical History: hysterectomy. right knee surgery. left arm and wrist surgery - Social History Smoking Status: Current Every Day Smoker Substance Use Type: Alcohol - Medications Home Medications: Home Medications Medication Instructions Recorded Confirmed Last Taken Type Aspirin [Aspirin BABY CHEW TAB] 81 mg PO QDAY 09/04/13 02/12/19 04/02/14 History Atenolol/Chlorthalidone [Tenoretic 1 tab PO QDAY 09/04/13 02/12/19 04/02/14 History 50-25 mg] Clopidogrel Bisulfate [Plavix] 75 mg PO QDAY 09/04/13 02/12/19 04/02/14 History metFORMIN [Glucophage] 500 mg PO BID 09/04/13 02/12/19 04/02/14 History Abacavir/Dolutegravir/Lamivudi 1 each PO QDAY 02/12/19 02/12/19 Unknown History [Triumeq 600-50-300 mg Tablet] Rosuvastatin Calcium [Crestor] 20 mg PO HS 02/12/19 02/12/19 Unknown History Azithromycin [Zithromax TAB] 500 mg PO QDAY #4 tablet 02/13/19 Unknown Rx Pantoprazole [Protonix] 40 mg PO QDAY #30 tablet 02/13/19 Unknown Rx Albuterol Sulfate [Proair 90 mcg IH Q4HR PRN #2 aer.pow.ba 03/04/19 Unknown Rx Respiclick] Famotidine [Pepcid] 20 mg PO BID #30 tablet 03/04/19 Unknown Rx Fluticasone [Flonase] 1 spray NS QDAY #1 bottle 03/04/19 Unknown Rx Meclizine [Antivert] 25 mg PO TID PRN #30 tablet 03/04/19 Unknown Rx Ondansetron [Zofran Odt] 4 mg PO Q8HR PRN #20 tab.rapdis 03/04/19 Unknown Rx Acetaminophen [Non-Aspirin Extra 500 mg PO Q6HR PRN #30 tablet 05/30/19 Unknown Rx Strength] Famotidine [Pepcid] 20 mg PO BID #10 tablet 05/30/19 Unknown Rx Ondansetron [Zofran Odt] 4 mg PO Q8HR PRN #20 tab.rapdis 05/30/19 Unknown Rx Gabapentin 300 mg PO BID #60 capsule 08/23/19 Unknown Rx Triamcinolone 0.1% [Kenalog 0.1% 1 applic TP TID 5 Days #1 tube 08/23/19 Unknown Rx CREAM] ED Physical Exam - General Limitations: No Limitations General appearance: alert, in no apparent distress - Head Head exam: Present: atraumatic, normocephalic - Eye Eye exam: Present: normal appearance. Absent: scleral icterus - ENT ENT exam: Present: normal orophraynx, mucous membranes moist - Neck Neck exam: Present: normal inspection, full ROM. Absent: lymphadenopathy - Respiratory Respiratory exam: Present: normal lung sounds bilaterally. Absent: respiratory distress - Cardiovascular Cardiovascular Exam: Present: regular rate, normal rhythm. Absent: systolic murmur, diastolic murmur, rubs, gallop - Extremities Exam Extremities exam: Present: normal inspection, full ROM, normal capillary refill. Absent: pedal edema, joint swelling - Neurological Exam Neurological exam: Present: alert, oriented X3, normal gait. Absent: motor sensory deficit - Psychiatric Psychiatric exam: Present: normal affect, normal mood - Skin Skin exam: Present: warm, dry, intact, normal color, rash (diffuse scattered papular rash noted laterally on the arms and legs and torso, sparing the face. Rash is non-erythemic and dry.) ED Course Vital Signs 08/23/19 11:20 Temperature 98.3 F Pulse Rate 68 Respiratory 20 Rate Blood Pressure 145/56 O2 Sat by Pulse 99 Oximetry ED Medical Decision Making - Lab Data Result diagrams: 08/23/19 13:42 08/23/19 13:42 Lab Results 08/23/19 08/23/19 Range/Units 13:42 13:42 WBC 4.0 L (4.5-11.0) K/mm3 RBC 4.38 (3.65-5.03) M/mm3 Hgb 13.7 (10.1-14.3) gm/dl Hct 41.3 (30.3-42.9) % MCV 94 (79-97) fl MCH 31 (28-32) pg MCHC 33 (30-34) % RDW 15.8 H (13.2-15.2) % Plt Count 272 (140-440) K/mm3 Lymph % (Auto) 23.0 (13.4-35.0) % [place] % (Auto) 5.7 (0.0-7.3) % Eos % (Auto) 2.1 (0.0-4.3) % Baso % (Auto) 0.8 (0.0-1.8) % Lymph # 0.9 L (1.2-5.4) K/mm3 [place] # 0.2 (0.0-0.8) K/mm3 Eos # 0.1 (0.0-0.4) K/mm3 Baso # 0.0 (0.0-0.1) K/mm3 Seg Neutrophils % 68.4 (40.0-70.0) % Seg Neutrophils # 2.7 (1.8-7.7) K/mm3 Sodium 136 L (137-145) mmol/L Potassium 3.9 (3.6-5.0) mmol/L Chloride 98.6 (98-107) mmol/L Carbon Dioxide 22 (22-30) mmol/L Anion Gap 19 mmol/L BUN 9 (7-17) mg/dL Creatinine 0.6 L (0.7-1.2) mg/dL Estimated GFR > 60 ml/min BUN/Creatinine Ratio 15 % Glucose 101 H (65-100) mg/dL Calcium 9.1 (8.4-10.2) mg/dL - Medical Decision Making 54-year-old -[place] female patient with history of diabetes, CA, hypertension, and HIV present with complaints of effuse itchy rash 2 weeks and worsening numbness and tingling in her hands and feet bilaterally 2 days. Patient states history of neuropathy has been off her gabapentin for months. Rash does not appear to be bacterial in nature. Vitals are normal. Patient is stable for discharge home with PCP follow-up recommended in 3-5 days. Discussed strict return precautions in detail with patient who verbalizes understanding. Critical care attestation.: If time is entered above; I have spent that time in minutes in the direct care of this critically ill patient, excluding procedure time. ED Disposition Clinical Impression: Diabetic peripheral neuropathy Disposition: DC-01 TO HOME OR SELFCARE Is pt being admited?: No Instructions: Peripheral Neuropathy (ED), Acute Rash (ED) Prescriptions: Gabapentin 300 mg PO BID #60 capsule Triamcinolone 0.1% [Kenalog 0.1% CREAM] 1 applic TP TID 5 Days #1 tube
[2019-08-23 14:15] LABS: Basophils % (Auto) 0.8 % (0.0-1.8); Eosinophils # (Auto) 0.1 K/mm3 (0.0-0.4); Eosinophils % (Auto) 2.1 % (0.0-4.3); Hematocrit 41.3 % (30.3-42.9); Hemoglobin 13.7 gm/dl (10.1-14.3); Lymphocytes # (Auto) 0.9 K/mm3 (1.2-5.4); Mean Corpuscular HGB Conc 33 % (30-34); Mean Corpuscular Volume 94 fl (79-97); Monocytes # (Auto) 0.2 K/mm3 (0.0-0.8); Monocytes % (Auto) 5.7 % (0.0-7.3); Platelet Count 272 K/mm3 (140-440); Red Blood Count 4.38 M/mm3 (3.65-5.03); Red Cell Distribution Width 15.8 % (13.2-15.2)
[2019-08-23 14:35] LABS: BUN/Creatinine Ratio 15; Blood Urea Nitrogen 9 mg/dL (7-17); Calcium 9.1 mg/dL (8.4-10.2); Hemolysis Index 9
== END 2019-08-23 15:04 | disposition home or self-care (01) ==
LOC: ED 11:18
DX: E11.40 Type 2 diabetes mellitus with diabetic neuropathy, unspecified (principal); I10 Essential (primary) hypertension; I21.9 Acute myocardial infarction, unspecified; F17.200 Nicotine dependence, unspecified, uncomplicated; Z21 Asymptomatic human immunodeficiency virus [HIV] infection status; Z90.710 Acquired absence of both cervix and uterus; Z98.890 Other specified postprocedural states; Z79.899 Other long term (current) drug therapy
CPT/HCPCS: 36415; 80048; 82962; 85025

== ENCOUNTER 2021-01-04 15:37 | Emergency (ER) | payer MEDICARE ==
[2021-01-04 15:54] VITALS: BP 146/82
[2021-01-04] MEDS ORDERED: ASPIRIN 325 MG TAB PO ONE (16:09)
--- NOTE | 2021-01-04 16:36 | XRay Report ---
CHEST 2 VIEWS INDICATION / CLINICAL INFORMATION: chest pain. COMPARISON: 08/08/2020 FINDINGS: SUPPORT DEVICES: None. HEART / MEDIASTINUM: No significant abnormality. LUNGS / PLEURA: No significant pulmonary or pleural abnormality. No pneumothorax. ADDITIONAL FINDINGS: No significant additional findings. IMPRESSION: No significant abnormality or interval change from 08/08/2020 Signer Name: John Villatoro MD FACR Signed: 01/04/2021 4:31 PM Workstation Name: [id number]
[2021-01-04 17:05] LABS: Basophils % (Auto) 0.5 % (0.0-1.8); Eosinophils # (Auto) 0.2 K/mm3 (0.0-0.4); Eosinophils % (Auto) 4.9 % (0.0-4.3); Hematocrit 37.9 % (30.3-42.9); Hemoglobin 12.6 gm/dl (10.1-14.3); Lymphocytes # (Auto) 1.7 K/mm3 (1.2-5.4); Mean Corpuscular HGB Conc 33 % (30-34); Mean Corpuscular Volume 93 fl (79-97); Monocytes # (Auto) 0.3 K/mm3 (0.0-0.8); Monocytes % (Auto) 5.7 % (0.0-7.3); Platelet Count 214 K/mm3 (140-440); Red Blood Count 4.09 M/mm3 (3.65-5.03); Red Cell Distribution Width 13.5 % (13.2-15.2)
[2021-01-04 17:20] LABS: Alanine Aminotransferase 8 units/L (7-56); Albumin 3.8 g/dL (3.9-5); BUN/Creatinine Ratio 12; Blood Urea Nitrogen 11 mg/dL (7-17); Calcium 8.6 mg/dL (8.4-10.2); Hemolysis Index 4
[2021-01-04] MEDS ORDERED: ALBUTEROL 2.5 MG/3 ML NEBU IH ONE (19:31)
[2021-01-04] MEDS ORDERED: predniSONE 20 MG TAB PO ONE (19:31)
[2021-01-04] MEDS ORDERED: IPRATROPIUM 0.02% NEBU 2.5 ML IH ONE (19:31)
--- NOTE | 2021-01-04 19:31 | Emergency Department Report ---
ED General Adult HPI - General Chief complaint: Chest Pain Stated complaint: CHEST PAIN/COUGHING Time Seen by Provider: 01/04/21 15:49 Source: patient Mode of arrival: Ambulatory Limitations: No Limitations - History of Present Illness Initial comments: 55-year-old female patient with history of IL status post stent placement, tobacco use, diabetes, hypertension, HIV, and peripheral arterial disease presents to the emergency department with complaints of cough, chest pain, and shortness of breath for 2 days. Patient states the chest pain and shortness of breath occur in conjunction with her coughing. Patient's was recently hospitalized for COVID-19. Patient is vaccinated. She states the chest pain she feels when she coughs is "totally different" from the chest pain she experienced with her prior IL. She is compliant with her antiplatelet therapy. No known history of chronic lung disease although patient does endorse tobacco use. Last CD4 count was undetectable. Denies fever, chills, palpitations, syncope, nausea, vomiting, diaphoresis, lower extremity pain/swelling. Denies all other complaints at this time. - Related Data Home Medications Medication Instructions Recorded Confirmed Last Taken Atenolol/Chlorthalidone [Tenoretic 1 tab PO QDAY 09/04/13 09/08/19 04/02/14 50-25 mg] Clopidogrel Bisulfate [Plavix] 75 mg PO QDAY 09/04/13 09/08/19 04/02/14 metFORMIN [Glucophage] 500 mg PO BID 09/04/13 09/08/19 04/02/14 Previous Rx's Medication Instructions Recorded Last Taken Type Acetaminophen/Codeine [Tylenol 1 tab PO Q8H PRN #8 tab 08/23/19 Unknown Rx /Codeine # 3 tab] Gabapentin 300 mg PO BID #60 capsule 08/23/19 Unknown Rx Ibuprofen [Motrin 600 MG tab] 600 mg PO Q8H PRN #24 tablet 09/04/19 Unknown Rx Benzonatate [Tessalon Perles] 100 mg PO BID PRN #14 capsule 09/10/19 Unknown Rx Meclizine [Antivert] 25 mg PO TID PRN tablet 09/10/19 Unknown Rx Ondansetron [Zofran ODT TAB] 4 mg PO Q8HR PRN tab.rapdis 09/10/19 Unknown Rx Promethazine [Phenergan] 25 mg PO Q6HR PRN tablet 09/10/19 Unknown Rx Triamcinolone 0.1% [Kenalog 0.1% 1 applic TP TID tube 09/10/19 Unknown Rx CREAM] levoFLOXacin [Levaquin] 750 mg PO QDAY #7 tablet 09/10/19 Unknown Rx tiZANidine [Zanaflex 4mg TAB] 4 mg PO Q8H PRN tablet 09/10/19 Unknown Rx traMADoL [Ultram 50 MG tab] 50 mg PO Q6HR tablet 09/10/19 Unknown Rx Aspirin [Aspirin BABY CHEW TAB] 81 mg PO QDAY #30 08/09/20 Unknown Rx Pantoprazole [Protonix TAB] 40 mg PO BID #60 tablet 08/09/20 Unknown Rx Rosuvastatin Calcium [Crestor] 40 mg PO HS #30 08/09/20 Unknown Rx Albuterol Sulfate [Proair 90 mcg IH Q4H #1 aer.pw.bas 01/04/21 Unknown Rx Digihaler] Benzonatate [Tessalon Perles] 200 mg PO Q8HR #30 capsule 01/04/21 Unknown Rx Doxycycline Hyclate 100 mg PO BID 7 Days tablet. 01/04/21 Unknown Rx predniSONE [Deltasone] 20 mg PO QDAY #5 tab 01/04/21 Unknown Rx Allergies Allergy/AdvReac Type Severity Reaction Status Date / Time No Known Allergies Allergy Verified 01/04/21 15:54 ED Review of Systems ROS: Stated complaint: CHEST PAIN/COUGHING Other details as noted in HPI Other: GENERAL: Negative for fever, chills, weight change, anorexia, fatigue. ENT: Negative for ear pain, difficulty hearing, sore throat, nasal congestion, epistaxis. CARDIOVASCULAR: Positive for chest pain. PULMONARY: Positive for cough and shortness of breath. GASTROINTESTINAL: Negative for abdominal pain, nausea, vomiting, diarrhea, constipation. MUSCULOSKELETAL: Negative for joint pain, joint swelling, myalgias, back pain, neck pain. NEUROLOGICAL: Negative for headache, seizure, syncope, paresthesias, weakness. INTEGUMENTARY: Negative for erythema, rash, diaphoresis, laceration, ecchymosis. HEMATOLOGICAL: Negative for hemoptysis, hematemesis, hematochezia, hematuria. PSYCHIATRIC: Negative for hallucinations, suicidal ideation, homicidal ideation, anxiety, depression. ED Past Medical Hx - Past Medical History Hx Hypertension: Yes Hx Heart Attack/AMI: Yes (pt states had [place] in march 2013 s/p stent placement by Dr Stephanie Pineda.) Hx Congestive Heart Failure: Yes Hx Diabetes: Yes Hx Asthma: No Hx COPD: No Hx HIV: Yes Additional medical history: high chol, HIV - Surgical History Hx Coronary Stent: Yes Additional Surgical History: hysterectomy. right knee surgery. left arm and wrist surgery - Social History Smoking Status: Current Every Day Smoker Substance Use Type: None - Medications Home Medications: Home Medications Medication Instructions Recorded Confirmed Last Taken Type Atenolol/Chlorthalidone [Tenoretic 1 tab PO QDAY 09/04/13 09/08/19 04/02/14 History 50-25 mg] Clopidogrel Bisulfate [Plavix] 75 mg PO QDAY 09/04/13 09/08/19 04/02/14 History metFORMIN [Glucophage] 500 mg PO BID 09/04/13 09/08/19 04/02/14 History Acetaminophen/Codeine [Tylenol 1 tab PO Q8H PRN #8 tab 08/23/19 09/08/19 Unknown Rx /Codeine # 3 tab] Gabapentin 300 mg PO BID #60 capsule 08/23/19 09/08/19 Unknown Rx Ibuprofen [Motrin 600 MG tab] 600 mg PO Q8H PRN #24 tablet 09/04/19 09/08/19 Unknown Rx Benzonatate [Tessalon Perles] 100 mg PO BID PRN #14 capsule 09/10/19 Unknown Rx Meclizine [Antivert] 25 mg PO TID PRN tablet 09/10/19 Unknown Rx Ondansetron [Zofran ODT TAB] 4 mg PO Q8HR PRN tab.rapdis 09/10/19 Unknown Rx Promethazine [Phenergan] 25 mg PO Q6HR PRN tablet 09/10/19 Unknown Rx Triamcinolone 0.1% [Kenalog 0.1% 1 applic TP TID tube 09/10/19 Unknown Rx CREAM] levoFLOXacin [Levaquin] 750 mg PO QDAY #7 tablet 09/10/19 Unknown Rx tiZANidine [Zanaflex 4mg TAB] 4 mg PO Q8H PRN tablet 09/10/19 Unknown Rx traMADoL [Ultram 50 MG tab] 50 mg PO Q6HR tablet 09/10/19 Unknown Rx Aspirin [Aspirin BABY CHEW TAB] 81 mg PO QDAY #30 08/09/20 Unknown Rx Pantoprazole [Protonix TAB] 40 mg PO BID #60 tablet 08/09/20 Unknown Rx Rosuvastatin Calcium [Crestor] 40 mg PO HS #30 08/09/20 Unknown Rx Albuterol Sulfate [Proair 90 mcg IH Q4H #1 aer.pw.bas 01/04/21 Unknown Rx Digihaler] Benzonatate [Tessalon Perles] 200 mg PO Q8HR #30 capsule 01/04/21 Unknown Rx Doxycycline Hyclate 100 mg PO BID 7 Days tablet. 01/04/21 Unknown Rx predniSONE [Deltasone] 20 mg PO QDAY #5 tab 01/04/21 Unknown Rx ED Physical Exam - General Limitations: No Limitations - Other Other exam information: General: Awake and alert. No acute distress. Head: Atraumatic, normocephalic. Eyes: EOMI. Pupils are equal and round. Normal sclera and conjunctiva. ENT: Oral mucosa is moist. Normal pharyngeal exam. Neck: Supple. No lymphadenopathy. Pulmonary: No respiratory distress. Scattered expiratory wheezing bilaterally. Chest pain reproducible with coughing and palpation. Cardiac: Regular rate and rhythm. Pulses are palpable and equal bilaterally. No lower extremity cyanosis or edema. Skin: Warm and dry. No rashes. Abdomen: Soft, non-tender, non-protuberant. No guarding, rigidity, or rebound. Bowel sounds are normal. No organomegaly or masses noted. Back: Normal alignment. No CVA tenderness. Extremities: Symmetrical. Full range of motion intact. Neurological: Alert and oriented, appropriately interactive, no focal deficits. Psych: Cooperative. Appropriate mood and affect. Speech is evenly metered. Thoughts are logically construed. ED Course Vital Signs 01/04/21 01/04/21 15:52 19:45 Temperature 98.9 F Pulse Rate 98 H Pulse Rate [ 85 Bilateral] Respiratory 20 Rate Respiratory 20 Rate [Bilateral ] Blood Pressure 146/82 O2 Sat by Pulse 98 Oximetry ED Medical Decision Making - Lab Data Result diagrams: 01/04/21 16:21 01/04/21 16:21 - EKG Data 01/04/21 20:26 EKG shows normal sinus rhythm with a ventricular rate of 82 bpm. Normal axis. Normal PA interval. Normal QT interval. Good R wave progression. No ST segment changes. Over read by attending emergency physician, who agrees with this interpretation. - Medical Decision Making Differential diagnosis including but not limited to: acute coronary syndrome, pericarditis, pericardial effusion/cardiac tamponade, myocarditis, pneumonia, pleural effusion, pneumothorax, COPD, asthma On reevaluation, patient remains stable and symptoms have improved following breathing treatment. Lungs clear to auscultation on repeat examination. She is afebrile, hemodynamically stable, no hypoxia, no respiratory distress. EKG without acute injury pattern. Initial and repeat troponin levels are negative. Patient specifically states that her chest pain is associated with coughing and is very different from the pain she experienced with her last IL. Labs show mild hyponatremia; she appears clinically well-hydrated and is tolerating PO without difficulty. Glucose is normal. Chest x-ray without acute process. Although patient smokes cigarettes, she has never officially been diagnosed with obstructive lung disease. States she has never experienced wheezing before. Due to high clinical suspicion for COPD exacerbation in the setting of known HIV, patient will be covered empirically with antibiotics as well as steroids, beta agonists, and antitussives. Patient is not hypoxic and has no clinical evidence to suggest concomitant systemic bacterial infection; no indication for hospital admission or further diagnostic work-up on an emergent basis at this time. Patient has been instructed to follow up with her primary care provider for further evaluation of possible underlying chronic lung disease. Patient expressed understanding and is agreeable to plan of care. Strict return prec autions provided. Repeat exam is unremarkable and benign. History, exam, diagnostic testing, and current condition do not suggest worrisome pathology to warrant further testing, continued ED treatment, admission, or surgical evaluation at this point. Given the low probability of a significant medical illness, it would be more likely to result in harm than benefit to perform further testing at this stage. Discussed findings, presumptive diagnosis, need for follow-up and specific signs/symptoms that should prompt immediate return to the emergency department. Instructions were explained in detail to the patient in addition to giving written discharge information. Patient expressed understanding and was given the opportunity to ask questions, all of which were satisfactorily answered prior to discharge home. Critical care attestation.: If time is entered above; I have spent that time in minutes in the direct care of this critically ill patient, excluding procedure time. ED Disposition Clinical Impression: Wheezing-associated respiratory infection, History of HIV infection, History of tobacco use, URI, acute Disposition: DC-01 TO HOME OR SELFCARE Is pt being admited?: No Does the pt Need Aspirin: No Condition: Stable Instructions: Upper Respiratory Infection, Adult, [id number] Additional Instructions: Take Tylenol every 4 hours and Motrin every 8 hours as needed for pain. Use Albuterol inhaler as directed. Take Prednisone with food as directed. Take Doxycycline with food as directed. Avoid prolonged sun exposure while taking this medication. Take Tessalon as directed for cough. Honey is an excellent natural cough suppressant. Please discontinue tobacco use. Rest. Drink plenty of fluids. Wash hands frequently to prevent disease transmission. Do not share food or drinks with others. Follow-up with your primary care provider this week. Call tomorrow to schedule an appointment. Return to the emergency department immediately for new or worsening symptoms. Specifically, return to the emergency department immediately for fever, worsening chest pain, increased difficulty breathing, dehydration, mental status changes, rash, or any other concerns. Prescriptions: predniSONE [Deltasone] 20 mg PO QDAY #5 tab Doxycycline Hyclate 100 mg PO BID 7 Days tablet. Albuterol Sulfate [Proair Digihaler] 90 mcg IH Q4H #1 aer.pw.bas Benzonatate [Tessalon Perles] 200 mg PO Q8HR #30 capsule Referrals: PAOLO TEE MD [Staff Physician] - 3-5 Days Time of Disposition: 20:45 HEART Score - HEART Score History: Slightly suspicious EKG: Normal Age: 45-65 Risk factors: > 3 risk factors or hx of atherosclerotic disease Troponin: Troponin T < 0.010 ng/mL (0.00-0.029) 01/04/21 19:36 Troponin: < normal limit HEART Score: 3 - Critical Actions Critical Actions: 0-3 pts:0.9-1.7%risk of adverse cardiac event.Candidate for discharge
[2021-01-04] MEDS ORDERED: SODIUM CHLORIDE 0.9% 1000 ML 1,000 ML IV ONE (19:51)
--- NOTE | 2021-01-05 17:51 | Electrocardiograph Report ---
[facility] Test Date: 2021-01-04 Test Time: 16:38:06 Pat Name: MACRINA GUDINO Department: Room: Gender: F Hospital Clinic Assistant: JOHNNIE : 1965 Requested By: GERMÁN SIDDIQI Order Number: [id number] Reading MD: Dami Borges Measurements Intervals [place] Rate: 82 P: 73 AR: 152 QRS: 40 QRSD: 102 T: 36 QT: 404 QTc: 473 Interpretive Statements Sinus rhythm Probable left atrial enlargement No previous ECG available for comparison Electronically Signed On 01-05-2021 17:50:43 EDT by Dami Borges
== END 2021-01-04 21:00 | disposition home or self-care (01) ==
LOC: ED 15:37
DX: J06.9 Acute upper respiratory infection, unspecified (principal); R06.2 Wheezing; I11.0 Hypertensive heart disease with heart failure; I50.9 Heart failure, unspecified; E11.9 Type 2 diabetes mellitus without complications; Z21 Asymptomatic human immunodeficiency virus [HIV] infection status; F17.200 Nicotine dependence, unspecified, uncomplicated; Z90.710 Acquired absence of both cervix and uterus; Z98.890 Other specified postprocedural states; Z79.4 Long term (current) use of insulin; Z79.899 Other long term (current) drug therapy
CPT/HCPCS: 36415; 71046; 80053; 84484; 85025; 93005; 94640; 99284; J7512; 94644

== ENCOUNTER 2021-01-10 13:26 | Emergency (ER) | payer MEDICARE ==
--- NOTE | 2021-01-10 15:19 | XRay Report ---
CHEST 2 VIEWS INDICATION: dizziness. COMPARISON: 01/04/2021 FINDINGS: Support devices: None. Heart: Within normal limits. Lungs/pleura: No acute air space or interstitial disease. No pneumothorax. Additional findings: None. IMPRESSION: No acute findings. Signer Name: Maikel Pratt Jr, MD Signed: 01/10/2021 3:14 PM Workstation Name: [id number]
[2021-01-10 15:20] LABS: Basophils # (Auto) 0.1 K/mm3 (0.0-0.1); Basophils % (Auto) 1.3 % (0.0-1.8); Eosinophils # (Auto) 0.1 K/mm3 (0.0-0.4); Eosinophils % (Auto) 1.6 % (0.0-4.3); Hematocrit 40.7 % (30.3-42.9); Hemoglobin 13.8 gm/dl (10.1-14.3); Lymphocytes # (Auto) 1.6 K/mm3 (1.2-5.4); Lymphocytes % (Auto) 27.5 % (13.4-35.0); Mean Corpuscular HGB Conc 34 % (30-34); Mean Corpuscular Volume 92 fl (79-97); Monocytes # (Auto) 0.3 K/mm3 (0.0-0.8); Monocytes % (Auto) 5.6 % (0.0-7.3); Platelet Count 258 K/mm3 (140-440); Red Blood Count 4.41 M/mm3 (3.65-5.03); Red Cell Distribution Width 13.8 % (13.2-15.2)
[2021-01-10] MEDS ORDERED: ACETAMINOPHEN 500 MG TAB PO ONE (15:25)
--- NOTE | 2021-01-10 15:28 | Event Note ---
ED Screening Note Date of service: 01/10/21 Time: 15:24 ED Screening Note: 55-year-old presents to the ER today with complaints of feeling dizzy and left elbow pain. Patient states that she was walking yesterday when she just fell. She states she does not know how she fell but she fell forward on concrete. She states that she is not sure she got dizzy or if it was accidental but she know she did not pass out. She states that she landed on her knees and her arms and has since been having left elbow pain. But she states that on the way to the ER this morning she started to feel dizzy and started with a headache. She denies any hitting her head yesterday. She is currently on Plavix secondary to history of coronary artery disease. She also has a history of diabetes and hypertension. She denies any vision changes, speech changes or focal weakness. This initial assessment/diagnostic orders/clinical plan/treatment(s) is/are subject to change based on patients health status, clinical progression and re- assessment by fellow clinical providers in the ED. Further treatment and workup at subsequent clinical providers discretion. Patient/guardian urged not to elope from the ED as their condition may be serious if not clinically assessed and managed. Initial orders include: Labs/x-ray/EKG/CT
[2021-01-10 15:41] LABS: Alanine Aminotransferase 12 units/L (7-56); Albumin 3.4 g/dL (3.9-5); BUN/Creatinine Ratio 24; Blood Urea Nitrogen 22 mg/dL (7-17); Calcium 8.5 mg/dL (8.4-10.2); Hemolysis Index 13
[2021-01-10 16:09] LABS: Partial Thromboplastin Time 24.2 Sec. (24.2-36.6)
[2021-01-10 16:13] LABS: INR 0.95 (0.87-1.13)
--- NOTE | 2021-01-10 16:24 | XRay Report ---
RIGHT ELBOW 3 VIEWS INDICATION / CLINICAL INFORMATION: elbow pain/injury/fall COMPARISON: None available. FINDINGS: BONES / JOINT(S): No acute fracture or subluxation. No significant arthritis. SOFT TISSUES: No significant abnormality. ADDITIONAL FINDINGS: None. Signer Name: Jax Tavarez MD Signed: 01/10/2021 4:19 PM Workstation Name: [id number]
--- NOTE | 2021-01-10 16:29 | Cat Scan Report ---
CT HEAD WITHOUT CONTRAST INDICATION / CLINICAL INFORMATION: Headache and dizziness. TECHNIQUE: All CT scans at this location are performed using CT dose reduction for ALARA by means of automated e xposure control. COMPARISON: Head CT 03/31/2019 FINDINGS: HEMORRHAGE: No evidence of intracranial hemorrhage or extra-axial fluid collection. EXTRA-AXIAL SPACES: Cortical sulci, sylvian fissures and basilar cisterns have an unremarkable appear ance. VENTRICULAR SYSTEM: The third and lateral ventricles are of normal size and configuration. CEREBRAL PARENCHYMA: No areas of abnormal brain parenchymal attenuation are identified. There is no i ndication of recent infarction. MIDLINE SHIFT OR HERNIATION: There is no mass effect. CEREBELLUM / BRAINSTEM: Brainstem and cerebellum have an unremarkable appearance. MIDLINE STRUCTURES:No abnormalities of the pituitary gland or pineal region are identified. INTRACRANIAL VESSELS:No abnormalities are identified on this noncontrast head CT. ORBITS: visualized portions of the orbits have an unremarkable appearance. SOFT TISSUES of HEAD: No significant abnormality. CALVARIUM: Evaluation of bone windows reveals no abnormalities. PARANASAL SINUSES / MASTOID AIR CELLS: Visualized portions of the paranasal sinuses are free from inf lammatory mucosal disease. Mastoid air cells are normally pneumatized. IMPRESSION: 1. No significant intracranial abnormality. No interval change compared to head CT 03/31/2019. Signer Name: Martin Ann MD Signed: 01/10/2021 4:24 PM Workstation Name: [employer]
[2021-01-10 21:36] VITALS: BP 136/58
--- NOTE | 2021-01-10 21:43 | Emergency Department Report ---
HPI - General Chief Complaint: Dizziness Time Seen by Provider: 01/10/21 15:19 - HPI HPI: This is a 55-year-old -I[place] female who presents to the emergency department with the complaints of right elbow pain after a fall yesterday, and now a 1 day history of some nonspecific dizziness/lightheadedness. The patient was walking into her home yesterday and says "I do not know how I fell" but she fell to the floor. She denies hitting her head or any loss of consciousness. The patient also says that she did not even realize that her elbow was hurting her until later that evening. Earlier today the elbow continued to hurt and she felt like she has some decreased form carpenter strength when she was trying to hold a can of soda. This is what prompted her to come into the emergency department for evaluation. Upon arrival here she complained of some nonspecific dizziness/lightheadedness as if she was going to pass out. She denies any fever, vision change, slurred speech, headache, chest pain. She has a past medical history of hypertension, diabetes, hyperlipidemia, IN, and HIV with undetectable levels. Her primary care physician is Dr. Carter. ED Past Medical Hx - Past Medical History Previous Medical History?: Yes Hx Hypertension: Yes Hx Heart Attack/AMI: Yes (pt states had IN in march 2013 s/p stent placement by Dr Stephanie Pineda.) Hx Congestive Heart Failure: Yes Hx Diabetes: Yes Hx Asthma: No Hx COPD: No Hx HIV: Yes Additional medical history: high chol, HIV - Surgical History Past Surgical History?: Yes Hx Coronary Stent: Yes Additional Surgical History: hysterectomy. right knee surgery. left arm and wrist surgery - Social History Smoking Status: Current Every Day Smoker Substance Use Type: None - Medications Home Medications: Home Medications Medication Instructions Recorded Confirmed Last Taken Type Atenolol/Chlorthalidone [Tenoretic 1 tab PO QDAY 09/04/13 09/08/19 04/02/14 History 50-25 mg] Clopidogrel Bisulfate [Plavix] 75 mg PO QDAY 09/04/13 09/08/19 04/02/14 History metFORMIN [Glucophage] 500 mg PO BID 09/04/13 09/08/19 04/02/14 History Acetaminophen/Codeine [Tylenol 1 tab PO Q8H PRN #8 tab 08/23/19 09/08/19 Unknown Rx /Codeine # 3 tab] Gabapentin 300 mg PO BID #60 capsule 08/23/19 09/08/19 Unknown Rx Ibuprofen [Motrin 600 MG tab] 600 mg PO Q8H PRN #24 tablet 09/04/19 09/08/19 Unknown Rx Benzonatate [Tessalon Perles] 100 mg PO BID PRN #14 capsule 09/10/19 Unknown Rx Meclizine [Antivert] 25 mg PO TID PRN tablet 09/10/19 Unknown Rx Ondansetron [Zofran ODT TAB] 4 mg PO Q8HR PRN tab.rapdis 09/10/19 Unknown Rx Promethazine [Phenergan] 25 mg PO Q6HR PRN tablet 09/10/19 Unknown Rx Triamcinolone 0.1% [Kenalog 0.1% 1 applic TP TID tube 09/10/19 Unknown Rx CREAM] levoFLOXacin [Levaquin] 750 mg PO QDAY #7 tablet 09/10/19 Unknown Rx tiZANidine [Zanaflex 4mg TAB] 4 mg PO Q8H PRN tablet 09/10/19 Unknown Rx traMADoL [Ultram 50 MG tab] 50 mg PO Q6HR tablet 09/10/19 Unknown Rx Aspirin [Aspirin BABY CHEW TAB] 81 mg PO QDAY #30 08/09/20 Unknown Rx Pantoprazole [Protonix TAB] 40 mg PO BID #60 tablet 08/09/20 Unknown Rx Rosuvastatin Calcium [Crestor] 40 mg PO HS #30 08/09/20 Unknown Rx Albuterol Sulfate [Proair 90 mcg IH Q4H #1 aer.pw.bas 01/04/21 Unknown Rx Digihaler] Benzonatate [Tessalon Perles] 200 mg PO Q8HR #30 capsule 01/04/21 Unknown Rx Doxycycline Hyclate 100 mg PO BID 7 Days tablet. 01/04/21 Unknown Rx predniSONE [Deltasone] 20 mg PO QDAY #5 tab 01/04/21 Unknown Rx ED Review of Systems ROS: Stated complaint: RIGHT ARM INJURY Other details as noted in HPI Comment: All other systems reviewed and negative Constitutional: denies: chills, fever Eyes: denies: eye pain, vision change ENT: denies: ear pain, throat pain Respiratory: denies: cough, shortness of breath Cardiovascular: denies: chest pain, palpitations, syncope Gastrointestinal: denies: abdominal pain, vomiting Genitourinary: denies: dysuria, discharge Musculoskeletal: arthralgia, myalgia. denies: joint swelling Skin: denies: rash, lesions Neurological: weakness (right hand/form carpenter). denies: headache, numbness, paresthesias Physical Exam - Physical Exam Vital Signs: Vital Signs 01/10/21 01/10/21 01/10/21 14:19 16:44 21:10 Temperature 98 F Pulse Rate 61 58 L Respiratory 20 18 16 Rate Blood Pressure 176/63 Blood Pressure 142/55 [Left] O2 Sat by Pulse 100 99 Oximetry 01/10/21 21:35 Temperature Pulse Rate 65 Respiratory 18 Rate Blood Pressure Blood Pressure 136/58 [Left] O2 Sat by Pulse 97 Oximetry Physical Exam: GENERAL: The patient is well-developed well-nourished. HENT: Normocephalic. Atraumatic. Patient has moist mucous membranes. EYES: Extraocular motions are intact. Pupils equal reactive to light bilaterally. No nystagmus. NECK: Supple. Trachea is midline. CHEST/LUNGS: Clear to auscultation. There is no respiratory distress noted. HEART/CARDIOVASCULAR: Regular. There is no tachycardia. There is no murmur. ABDOMEN: Abdomen is soft, nontender. Patient has normal bowel sounds. There is no abdominal distention. SKIN: Skin is warm and dry. NEURO: The patient is awake, alert, and oriented. The patient is cooperative. The patient has no focal neurologic deficits. Normal speech. Cranial nerves II through XII grossly intact. No facial asymmetry. No pronator drift or dysmetria. MUSCULOSKELETAL: There is tenderness to palpation to the right elbow. Full ra nge of motion to all extremities. Patient has some decreased form carpenter strength of the right hand. ED Course Vital Signs 01/10/21 01/10/21 01/10/21 14:19 16:44 21:10 Temperature 98 F Pulse Rate 61 58 L Respiratory 20 18 16 Rate Blood Pressure 176/63 Blood Pressure 142/55 [Left] O2 Sat by Pulse 100 99 Oximetry 01/10/21 21:35 Temperature Pulse Rate 65 Respiratory 18 Rate Blood Pressure Blood Pressure 136/58 [Left] O2 Sat by Pulse 97 Oximetry ED Medical Decision Making - Lab Data Result diagrams: 01/10/21 15:09 01/10/21 15:09 Lab Results 01/10/21 01/10/21 01/10/21 Range/Units 15:09 15:09 15:34 WBC 5.7 (4.5-11.0) K/mm3 RBC 4.41 (3.65-5.03) M/mm3 Hgb 13.8 (10.1-14.3) gm/dl Hct 40.7 (30.3-42.9) % MCV 92 (79-97) fl MCH 31 (28-32) pg MCHC 34 (30-34) % RDW 13.8 (13.2-15.2) % Plt Count 258 (140-440) K/mm3 Lymph % (Auto) 27.5 (13.4-35.0) % Mercer % (Auto) 5.6 (0.0-7.3) % Eos % (Auto) 1.6 (0.0-4.3) % Baso % (Auto) 1.3 (0.0-1.8) % Lymph # (Auto) 1.6 (1.2-5.4) K/mm3 Mercer # (Auto) 0.3 (0.0-0.8) K/mm3 Eos # (Auto) 0.1 (0.0-0.4) K/mm3 Baso # (Auto) 0.1 (0.0-0.1) K/mm3 Seg Neutrophils % 64.0 (40.0-70.0) % Seg Neutrophils # 3.7 (1.8-7.7) K/mm3 PT 12.5 (12.2-14.9) Sec. INR 0.95 (0.87-1.13) APTT 24.2 (24.2-36.6) Sec. Sodium 135 L (137-145) mmol/L Potassium 3.5 L (3.6-5.0) mmol/L Chloride 101.5 (98-107) mmol/L Carbon Dioxide 22 (22-30) mmol/L Anion Gap 15 mmol/L BUN 22 H (7-17) mg/dL Creatinine 0.9 (0.6-1.2) mg/dL Estimated GFR > 60 ml/min BUN/Creatinine Ratio 24 % Glucose 108 H (65-100) mg/dL Calcium 8.5 (8.4-10.2) mg/dL Magnesium (1.7-2.3) mg/dL Total Bilirubin 0.40 (0.1-1.2) mg/dL AST 16 (5-40) units/L ALT 12 (7-56) units/L Alkaline Phosphatase 131 H (35-129) units/L Troponin T < 0.010 (0.00-0.029) ng/mL Total Protein 7.7 (6.3-8.2) g/dL Albumin 3.4 L (3.9-5) g/dL Albumin/Globulin Ratio 0.8 % 01/10/21 01/10/21 01/10/21 Range/Units 15:34 17:15 20:44 WBC (4.5-11.0) K/mm3 RBC (3.65-5.03) M/mm3 Hgb (10.1-14.3) gm/dl Hct (30.3-42.9) % MCV (79-97) fl MCH (28-32) pg MCHC (30-34) % RDW (13.2-15.2) % Plt Count (140-440) K/mm3 Lymph % (Auto) (13.4-35.0) % Mercer % (Auto) (0.0-7.3) % Eos % (Auto) (0.0-4.3) % Baso % (Auto) (0.0-1.8) % Lymph # (Auto) (1.2-5.4) K/mm3 Mercer # (Auto) (0.0-0.8) K/mm3 Eos # (Auto) (0.0-0.4) K/mm3 Baso # (Auto) (0.0-0.1) K/mm3 Seg Neutrophils % (40.0-70.0) % Seg Neutrophils # (1.8-7.7) K/mm3 PT (12.2-14.9) Sec. INR (0.87-1.13) APTT (24.2-36.6) Sec. Sodium (137-145) mmol/L Potassium (3.6-5.0) mmol/L Chloride (98-107) mmol/L Carbon Dioxide (22-30) mmol/L Anion Gap mmol/L BUN (7-17) mg/dL Creatinine (0.6-1.2) mg/dL Estimated GFR ml/min BUN/Creatinine Ratio % Glucose (65-100) mg/dL Calcium (8.4-10.2) mg/dL Magnesium 1.70 (1.7-2.3) mg/dL Total Bilirubin (0.1-1.2) mg/dL AST (5-40) units/L ALT (7-56) units/L Alkaline Phosphatase (35-129) units/L Troponin T < 0.010 < 0.010 (0.00-0.029) ng/mL Total Protein (6.3-8.2) g/dL Albumin (3.9-5) g/dL Albumin/Globulin Ratio % - EKG Data -: EKG Interpreted by Me EKG shows normal: sinus rhythm, axis, intervals, QRS complexes, ST-T waves Rate: bradycardia (57 bpm) - EKG Data When compared to previous EKG there are: no significant change Interpretation: unchanged when compared t (01/04/21) - Radiology Data Radiology results: report reviewed, image reviewed interpreted by me: Chest x-ray does not show any acute process. There are no pleural effusions, obvious pneumonia and there is no pneumothorax. No significant cardiomegaly. X-ray of the right elbow does not show any fracture, dislocation, or any acute process. CT HEAD WITHOUT CONTRAST INDICATION / CLINICAL INFORMATION: Headache and dizziness. TECHNIQUE: All CT scans at this location are performed using CT dose reduction for ALARA by means of automated exposure control. COMPARISON: Head CT 03/31/2019 FINDINGS: HEMORRHAGE: No evidence of intracranial hemorrhage or extra- axial fluid collection. EXTRA-AXIAL SPACES: Cortical sulci, sylvian fissures and basilar cisterns have an unremarkable appearance. VENTRICULAR SYSTEM: The third and lateral ventricles are of normal size and configuration. CEREBRAL PARENCHYMA: No areas of abnormal brain parenchymal attenuation are identified. There is no indication of recent infarction. MIDLINE SHIFT OR HERNIATION: There is no mass effect. CEREBELLUM / BRAINSTEM: Brainstem and cerebellum have an unremarkable appearance. MIDLINE STRUCTURES:No abnormalities of the pituitary gland or pineal region are identified. INTRACRANIAL VESSELS:No abnormalities are identified on this noncontrast head CT. ORBITS: visualized portions of the orbits have an unremarkable appearance. SOFT TISSUES of HEAD: No significant abnormality. CALVARIUM: Evaluation of bone windows reveals no abnormalities. PARANASAL SINUSES / MASTOID AIR CELLS: Visualized portions of the paranasal sinuses are free from inflammatory mucosal disease. Mastoid air cells are normally pneumatized. IMPRESSION: 1. No significant intracranial abnormality. No interval change compared to head CT 03/31/2019. - Medical Decision Making This patient presented to the emergency department with the complaint of right elbow pain after a fall yesterday. Upon arrival to the emergency department she also began having some dizziness/lightheadedness. On examination she does not have any focal, motor or sensory deficits and her cranial nerves are intact. There is some tenderness to palpation of the right elbow but no obvious deformity. The patient exhibits some mild decreased form carpenter strength to that affected right hand. X-ray of the right elbow does not show any fracture, dislo cation, or any acute process. Chest x-ray does not show any pneumonia, pleural effusions, pneumothorax, or any acute process. CT scan of the head without contrast does not have any hemorrhage, large vessel occlusion, or any acute process. EKG does not show any morphology consistent with ST elevation myocardial infarction or any dysrhythmia. Patient's labs have been unremarkable including CBC, metabolic panel, negative troponins x2. Patient is a 0 on the NIH stroke scale. Vital signs have been reassuring throughout her ED course including being afebrile. For all these reasons the patient appears safe for discharge home at this time. She has been placed in a shoulder sling to help with the elbow pain. She has been instructed to follow-up with an orthopedist and has been given to local outpatient orthopedic referrals. The patient was seen ambulatory throughout the emergency department and both appears and feels stable. Critical Care Time: No Critical care attestation.: If time is entered above; I have spent that time in minutes in the direct care of this critically ill patient, excluding procedure time. ED Disposition Clinical Impression: Right elbow pain, Dizziness Disposition: DC-01 TO HOME OR SELFCARE Is pt being admited?: No Condition: Stable Instructions: Elbow Contusion, Joint Pain, Dizziness Additional Instructions: Please follow-up with your primary care physician in the next few days. Please follow-up with an orthopedist regarding your right elbow pain and form carpenter weakness. I have given you a referral for 2 different local orthopedic groups, Dr. Garrison and [facility]. Return to the emergency department with any worsening of your symptoms, new or concerning symptoms not addressed during this current emergency department visit, or with any acute distress. Referrals: VIGNESH SORTO MD [Primary Care Provider] - 2-3 Days SAE GARRISON MD [Staff Physician] - 2-3 Days [facility] [Provider Group] - 2-3 Days Time of Disposition: 21:44
--- NOTE | 2021-01-12 11:49 | Electrocardiograph Report ---
[facility] Test Date: 2021-01-10 Test Time: 14:26:48 Pat Name: MACRINA GUDINO Department: Room: Gender: F Contact Center Director: BRIAN : 1965 Requested By: ED DOC Order Number: [id number] Reading MD: Reyes Hill Measurements Intervals Foley Rate: 57 P: 74 LA: 169 QRS: 38 QRSD: 106 T: 50 QT: 467 QTc: 456 Interpretive Statements Sinus bradycardia Probable left atrial enlargement Compared to ECG 01/04/2021 16:38:06 Sinus rhythm no longer present Electronically Signed On 01-12-2021 11:49:03 EDT by Reyes Hill
== END 2021-01-10 22:02 | disposition home or self-care (01) ==
LOC: ED 13:26
DX: M25.521 Pain in right elbow (principal); R42 Dizziness and giddiness; I11.0 Hypertensive heart disease with heart failure; I50.9 Heart failure, unspecified; E11.9 Type 2 diabetes mellitus without complications; Z21 Asymptomatic human immunodeficiency virus [HIV] infection status; F17.200 Nicotine dependence, unspecified, uncomplicated; Z90.710 Acquired absence of both cervix and uterus; Z98.890 Other specified postprocedural states; Z79.1 Long term (current) use of non-steroidal anti-inflammatories (NSAID); Z79.899 Other long term (current) drug therapy
CPT/HCPCS: 36415; 70450; 71046; 80053; 83735; 84484; 85025; 85610; 85730; 93005

== ENCOUNTER 2022-02-12 16:35 | Emergency (ER) | payer MEDICARE ==
[2022-02-12 21:11] VITALS: BP 165/62
--- NOTE | 2022-02-12 21:46 | Emergency Department Report ---
ED General Adult HPI - General Chief complaint: Extremity Injury, Lower Stated complaint: PAIN IN RT FOOT Time Seen by Provider: 02/12/22 21:24 Source: patient Mode of arrival: Ambulatory Limitations: No Limitations - History of Present Illness Initial comments: 56-year-old female [id number] female neuropathy due to diabetes presents emerged department complaining pain flareup Mildly to Zanaflex and Neurontin. She reports emergency department seeking stronger pain medications to help her mitigate what she is calling her pain flareup episode. She reports no traumatic events, no fever, chills, sweats. No extremity swelling. She reports no chest pain, no nausea no vomiting Severity scale (0 -10): 0 Consistency: constant Improves with: none Worsens with: none Associated Symptoms: denies other symptoms. denies: malaise, nausea/vomiting Treatments Prior to Arrival: none - Related Data Home Medications Medication Instructions Recorded Confirmed Last Taken Atenolol/Chlorthalidone [Tenoretic 1 tab PO QDAY 09/04/13 09/08/19 04/02/14 50-25 mg] Clopidogrel Bisulfate [Plavix] 75 mg PO QDAY 09/04/13 09/08/19 04/02/14 metFORMIN [Glucophage] 500 mg PO BID 09/04/13 09/08/19 04/02/14 Previous Rx's Medication Instructions Recorded Last Taken Type Acetaminophen/Codeine [Tylenol 1 tab PO Q8H PRN #8 tab 08/23/19 Unknown Rx /Codeine # 3 tab] Gabapentin 300 mg PO BID #60 capsule 08/23/19 Unknown Rx Ibuprofen [Motrin 600 MG tab] 600 mg PO Q8H PRN #24 tablet 09/04/19 Unknown Rx Benzonatate [Tessalon Perles] 100 mg PO BID PRN #14 capsule 09/10/19 Unknown Rx Meclizine [Antivert] 25 mg PO TID PRN tablet 09/10/19 Unknown Rx Ondansetron [Zofran ODT TAB] 4 mg PO Q8HR PRN tab.rapdis 09/10/19 Unknown Rx Promethazine [Phenergan] 25 mg PO Q6HR PRN tablet 09/10/19 Unknown Rx Triamcinolone 0.1% [Kenalog 0.1% 1 applic TP TID tube 09/10/19 Unknown Rx CREAM] levoFLOXacin [Levaquin] 750 mg PO QDAY #7 tablet 09/10/19 Unknown Rx tiZANidine [Zanaflex 4mg TAB] 4 mg PO Q8H PRN tablet 09/10/19 Unknown Rx traMADoL [Ultram 50 MG tab] 50 mg PO Q6HR tablet 09/10/19 Unknown Rx Aspirin [Aspirin BABY CHEW TAB] 81 mg PO QDAY #30 08/09/20 Unknown Rx Pantoprazole [Protonix TAB] 40 mg PO BID #60 tablet 08/09/20 Unknown Rx Rosuvastatin Calcium [Crestor] 40 mg PO HS #30 08/09/20 Unknown Rx Albuterol Sulfate [Proair 90 mcg IH Q4H #1 aer.pw.bas 01/04/21 Unknown Rx Digihaler] Benzonatate [Tessalon Perles] 200 mg PO Q8HR #30 capsule 01/04/21 Unknown Rx Doxycycline Hyclate 100 mg PO BID 7 Days tablet. 01/04/21 Unknown Rx predniSONE [Deltasone] 20 mg PO QDAY #5 tab 01/04/21 Unknown Rx Allergies Allergy/AdvReac Type Severity Reaction Status Date / Time No Known Allergies Allergy Verified 01/10/21 14:20 ED Review of Systems ROS: Stated complaint: PAIN IN RT FOOT Other details as noted in HPI Comment: All other systems reviewed and negative ED Past Medical Hx - Past Medical History Hx Hypertension: Yes Hx Heart Attack/AMI: Yes (pt states had MD in march 2013 s/p stent placement by Dr Stephanie Pineda.) Hx Congestive Heart Failure: Yes Hx Diabetes: Yes Hx Asthma: No Hx COPD: No Hx HIV: Yes Additional medical history: high chol, HIV, arthritis - Surgical History Hx Coronary Stent: Yes Additional Surgical History: hysterectomy. right knee surgery. left arm and wrist surgery - Social History Smoking Status: Never Smoker - Medications Home Medications: Home Medications Medication Instructions Recorded Confirmed Last Taken Type Atenolol/Chlorthalidone [Tenoretic 1 tab PO QDAY 09/04/13 09/08/19 04/02/14 History 50-25 mg] Clopidogrel Bisulfate [Plavix] 75 mg PO QDAY 09/04/13 09/08/19 04/02/14 History metFORMIN [Glucophage] 500 mg PO BID 09/04/13 09/08/19 04/02/14 History Acetaminophen/Codeine [Tylenol 1 tab PO Q8H PRN #8 tab 08/23/19 09/08/19 Unknown Rx /Codeine # 3 tab] Gabapentin 300 mg PO BID #60 capsule 08/23/19 09/08/19 Unknown Rx Ibuprofen [Motrin 600 MG tab] 600 mg PO Q8H PRN #24 tablet 09/04/19 09/08/19 Unknown Rx Benzonatate [Tessalon Perles] 100 mg PO BID PRN #14 capsule 09/10/19 Unknown Rx Meclizine [Antivert] 25 mg PO TID PRN tablet 09/10/19 Unknown Rx Ondansetron [Zofran ODT TAB] 4 mg PO Q8HR PRN tab.rapdis 09/10/19 Unknown Rx Promethazine [Phenergan] 25 mg PO Q6HR PRN tablet 09/10/19 Unknown Rx Triamcinolone 0.1% [Kenalog 0.1% 1 applic TP TID tube 09/10/19 Unknown Rx CREAM] levoFLOXacin [Levaquin] 750 mg PO QDAY #7 tablet 09/10/19 Unknown Rx tiZANidine [Zanaflex 4mg TAB] 4 mg PO Q8H PRN tablet 09/10/19 Unknown Rx traMADoL [Ultram 50 MG tab] 50 mg PO Q6HR tablet 09/10/19 Unknown Rx Aspirin [Aspirin BABY CHEW TAB] 81 mg PO QDAY #30 08/09/20 Unknown Rx Pantoprazole [Protonix TAB] 40 mg PO BID #60 tablet 08/09/20 Unknown Rx Rosuvastatin Calcium [Crestor] 40 mg PO HS #30 08/09/20 Unknown Rx Albuterol Sulfate [Proair 90 mcg IH Q4H #1 aer.pw.bas 01/04/21 Unknown Rx Digihaler] Benzonatate [Tessalon Perles] 200 mg PO Q8HR #30 capsule 01/04/21 Unknown Rx Doxycycline Hyclate 100 mg PO BID 7 Days tablet. 01/04/21 Unknown Rx predniSONE [Deltasone] 20 mg PO QDAY #5 tab 01/04/21 Unknown Rx ED Physical Exam - General Limitations: No Limitations General appearance: alert, in no apparent distress - Head Head exam: Present: atraumatic, normocephalic - Eye Eye exam: Present: normal appearance, PERRL, EOMI - ENT ENT exam: Present: mucous membranes moist - Neck Neck exam: Present: normal inspection - Respiratory Respiratory exam: Present: normal lung sounds bilaterally. Absent: respiratory distress - Cardiovascular Cardiovascular Exam: Present: regular rate, normal rhythm. Absent: systolic murmur, diastolic murmur, rubs, gallop - GI/Abdominal GI/Abdominal exam: Present: soft, normal bowel sounds - Extremities Exam Extremities exam: Present: normal inspection, full ROM, tenderness, normal capillary refill, other (Pain to left foot with palpation but no visible swelling erythema foreign bodies appreciated. Pain is sensitive to light touch). Absent: pedal edema, joint swelling, calf tenderness - Back Exam Back exam: Present: normal inspection. Absent: CVA tenderness (R), CVA tenderness (L), paraspinal tenderness - Neurological Exam Neurological exam: Present: alert, oriented X3, CN II-XII intact - Psychiatric Psychiatric exam: Present: normal affect, normal mood - Skin Skin exam: Present: warm, dry, intact, normal color. Absent: rash, diaphoretic, erythema, abrasion, ecchymosis ED Course Vital Signs 02/12/22 02/12/22 16:40 21:10 Temperature 98.6 F 98.2 F Pulse Rate 79 72 Respiratory 20 16 Rate Blood Pressure 91/64 Blood Pressure 165/62 [Left] O2 Sat by Pulse 99 100 Oximetry Critical care attestation.: If time is entered above; I have spent that time in minutes in the direct care of this critically ill patient, excluding procedure time. ED Disposition Clinical Impression: Neuropathy, Chronic pain of lower extremity Disposition: HOME / SELF CARE / HOMELESS Is pt being admited?: No Does the pt Need Aspirin: No Condition: Stable Instructions: Chronic Pain, Adult, Peripheral Neuropathy, Authorized Agent- Controlled Analgesia, Neuropathic Pain Additional Instructions: He was seen in the emergency department today for your chronic neuropathy/lower extremity pain please be sure to follow-up with your doctor managing your pain/neuropathy for adjustments in your therapy and more definitive treatment. Referrals: [facility] [Provider Group] - 3-5 Days [facility]Provider Group] - 3-5 Days
[2022-02-12] MEDS ORDERED: oxyCODONE /ACETAMINOPHEN 5-325MG TAB PO ONE (22:12)
== END 2022-02-13 00:12 | disposition home or self-care (01) ==
LOC: ED 16:35
DX: G62.9 Polyneuropathy, unspecified (principal); M79.605 Pain in left leg; M79.604 Pain in right leg; I11.0 Hypertensive heart disease with heart failure; I50.9 Heart failure, unspecified; E11.9 Type 2 diabetes mellitus without complications; Z21 Asymptomatic human immunodeficiency virus [HIV] infection status; M19.90 Unspecified osteoarthritis, unspecified site; E78.00 Pure hypercholesterolemia, unspecified; Z90.710 Acquired absence of both cervix and uterus; Z98.890 Other specified postprocedural states
CPT/HCPCS: 99282